=== PATIENT | female | born 1960 | race Caucasian/White ===

== ENCOUNTER 2017-03-31 14:30 | Inpatient (IN) | payer BC ==
[~2017-03-31] VITALS: Ht 162.5 cm; Wt 52.6 kg
[2017-03-31 14:39] VITALS: BP 111/74
[2017-03-31 15:03] LABS: BASO # 0.1 10*3/uL (0.0-0.1); BASO % 0.7 % (0.0-1.0); EOS # 0.1 10*3/uL (0.0-0.4); EOS % 1.5 % (1.0-4.0); HEMATOCRIT 43.2 % (37.0-47.0); HEMOGLOBIN 14.2 g/dl (12.0-16.0); LYMPH # 3.7 10*3/uL (1.3-4.4); LYMPH % 46.5 % (27.0-41.0); MEAN CELL VOLUME 93.7 fl (81.0-99.0); MEAN CORPUSCULAR HGB 30.8 pg (27.0-31.0); MEAN CORPUSCULAR HGB CONC 32.9 g/dl (33.0-37.0); MEAN PLATELET VOLUME 10.3 fl (9.6-12.3); MONO # 0.4 10*3/uL (0.1-1.0); NEUT # 3.7 10*3/uL (2.3-7.9); NEUT % 46.1 % (47.0-73.0); PLATELET COUNT AUTOMATED 288 10*3/uL (130-400); RED BLOOD COUNT 4.61 10*6/uL (4.10-5.10); RED CELL DISTRI WIDTH 13.7 % (0-14.5); WHITE BLOOD COUNT 8.1 10*3/uL (4.8-10.8)
[2017-03-31 15:22] LABS: ALBUMIN 3.7 gm/dl (3.1-4.5); ALKALINE PHOSPHATASE 95 U/L (45-117); BUN 13 mg/dl (7-24); CHLORIDE 111 mmol/L (98-107); CREATININE 0.76 mg/dL (0.55-1.02); POTASSIUM 3.7 mmol/L (3.5-5.1); SGOT/AST 34 IU/L (3-35); SGPT/ALT 30 U/L (12-78); SODIUM 145 mmol/L (136-145); TOTAL PROTEIN 7.4 gm/dL (6.4-8.2)
[2017-03-31 15:24] LABS: ACETAMINOPHEN (TYLENOL) < 2.0 ug/ml (10-30); TROPONIN I < 0.015 ng/ml (<0.045)
[2017-03-31 15:29] LABS: THYROID STIM HORMONE (HS) 0.599 uIU/ml (0.358-4.75)
--- NOTE | 2017-03-31 15:56 | NUR ---
PATIENT WITH BANANA BAG INFUSING AT TIME OF ADMISION. PATIENT REFUSED TO PUT ON HOSPITAL GOWN
[2017-03-31 16:00] VITALS: BP 114/58
--- NOTE | 2017-03-31 16:10 | NUR ---
56 year old FEMALE admitted to room # 416 for stabilization. Reports an addiction to ETOH last used 1400 hours prior to admission. Compliant with admission procedure. Patient denies any anxiety, but is unable to sit still, taps toes to floor continuously, looks about room, unable to focus eyes on nurse during interview. See assessment forms for additional information about patient status.
[2017-03-31] MEDS ORDERED: TOPROL XL50 M1 PO (17:11)
[2017-03-31] MEDS ORDERED: BUSPIRONE15 MG PO (17:11)
[2017-03-31] MEDS ORDERED: NEURONTIN100 MG PO (17:11)
[2017-03-31] MEDS ORDERED: VISTARIL25 M2 PO (17:12)
[2017-03-31] MEDS ORDERED: REMERON15 M2 PO (17:12)
--- NOTE | 2017-03-31 17:16 | NUR ---
CALLED AND NOTIFIED THAT HOME MEDICATIONS WERE VERIFIED WITH [facility] AND WERE UPDATED IN [facility].
[2017-03-31 20:00] VITALS: BP 145/90
[2017-03-31 20:14] LABS: BILIRUBIN NEGATIVE (NEGATIVE); BLOOD NEGATIVE (NEGATIVE); CLARITY SL CLOUDY (CLEAR); COLOR YELLOW (YELLOW); GLUCOSE NEGATIVE (NEGATIVE); KETONE NEGATIVE (NEGATIVE); LEUKO ESTERASE 1+ (NEGATIVE); NITRITE POSITIVE (NEGATIVE); PH 5.5 (5.0-9.0); SPECIFIC GRAVITY 1.015 (1.005-1.030); UROBILINOGEN 0.2 E.U./dl (0.2-1.0)
[2017-03-31 20:24] LABS: RBC 0-2 rbc/hpf (0-2); URINE AMPHETAMINES < 1000 (1000ng/ml); URINE BARBITURATES < 200 (200ng/ml); URINE BENZODIAZEPINES > 200 (200ng/ml); URINE CANNABINOIDS (THC) < 50 (50ng/ml); URINE COCAINE < 300 (300ng/ml); URINE METHADONE < 300 (300ng/ml); URINE OPIATES < 300 (300ng/ml)
[2017-03-31 20:25] LABS: BACTERIA 4+; MUCOUS TRACE
--- NOTE | 2017-03-31 20:30 | NUR ---
PATIENT IV INFILTRATED. 22G ANGIOCATH INSERTED INTO RIGHT WRIST WITHOUT DIFFICULTY. PATIENT TOLERATED PROCEDURE WELL. NO SIGNS OR SYMPTOMS OF DISTRESS NOTED. WILL CONTINUE TO MONITOR. CALL LIGHT IN REACH.
[2017-03-31 20:33] LABS: URINE PHENCYCLIDINE < 25 (25ng/ml)
[2017-04-01] VITALS: BP 122/69
--- NOTE | 2017-04-01 01:21 | NUR ---
PATIENT RESTING IN BED WITH EYES CLOSED. AROUSES TO VERBAL STIMULI. NO SIGNS OR SYMPTOMS OF DISTRESS NOTED. DENIES COMPLAINTS OF PAIN OR DISCOMFORT. WILL CONTINUE TO MONITOR. CALL LIGHT IN REACH.
[2017-04-01 04:00] VITALS: BP 132/78
[2017-04-01 08:00] VITALS: BP 154/91
[2017-04-01 12:00] VITALS: BP 151/91
[2017-04-01 16:00] VITALS: BP 113/65
[2017-04-01 20:00] VITALS: BP 116/71
--- NOTE | 2017-04-01 20:32 | NUR ---
PATIENT RESTING COMFORTABLY IN BED. NO VOICED COMPLAINTS AT THIS TIME. A&0X3, PLEASANT/COOPERATIVE WITH CARE, AMBULATORY W/ STEADY GAIT. RESPIRATIONS EASY/REG. NO SXS OF DISTRESS. CALL LIGHT IN REACH. WILL MONITOR.
[2017-04-02 01:17] VITALS: BP 111/59
--- NOTE | 2017-04-02 04:16 | NUR ---
SLEEPING, NO SXS OF DISTRESS. RESPIRATIONS EASY/REG. CALL LIGHT IN REACH.
[2017-04-02 08:00] VITALS: BP 136/91
--- NOTE | 2017-04-02 08:00 | NUR ---
PT RESTING IN BED. PT ANXIOUS. PACING THE ROOM/ WANTS TO GO HOME. STATES SHE WILL WAIT FOR
[2017-04-02 12:00] VITALS: BP 128/78
--- NOTE | 2017-04-02 14:00 | NUR ---
PT LEFT AMA. DR WILLAMS AND TOPOGRAPHICAL SURVEYOR BINDU NOTIFIED
--- NOTE | 2017-04-02 14:29 | NUR ---
LEFT DETAILED MESSAGE AT [facility] OFFICE REGARDING PT LEAVING AMA
== END 2017-04-02 14:32 | disposition left against medical advice (07) | DRG 894 ==
LOC: ED 14:30 → EDHOLD 15:09 → 5E 15:15
PROVIDERS: Nurse Practitioner Family; ADMIT Internal Medicine
DX: F10.230 Alcohol dependence with withdrawal, uncomplicated (principal); E87.8 Other disorders of electrolyte and fluid balance, not elsewhere classified; D70.9 Neutropenia, unspecified; F10.29 Alcohol dependence with unspecified alcohol-induced disorder; N39.0 Urinary tract infection, site not specified; R73.9 Hyperglycemia, unspecified; D72.820 Lymphocytosis (symptomatic); Z71.6 Tobacco abuse counseling; Z72.0 Tobacco use; I10 Essential (primary) hypertension; F41.9 Anxiety disorder, unspecified; G47.00 Insomnia, unspecified; M79.2 Neuralgia and neuritis, unspecified; Z53.21 Procedure and treatment not carried out due to patient leaving prior to being seen by health care provider; Z90.89 Acquired absence of other organs; Z82.49 Family history of ischemic heart disease and other diseases of the circulatory system; Z79.899 Other long term (current) drug therapy

== ENCOUNTER 2017-04-06 12:29 | Emergency (ER) | payer BC ==
[~2017-04-06] VITALS: Ht 160 cm; Wt 54.4 kg
[~2017-04-06 12:29] MED LIST: BUSPIRONE15 MG PO; NEURONTIN100 MG PO; REMERON15 M2 PO; TOPROL XL50 M1 PO; VISTARIL25 M2 PO
[2017-04-06] MEDS ORDERED: CIPROFLOXACIN500 M4 PO (15:47)
== END 2017-04-06 14:13 | disposition left against medical advice (07) ==
LOC: ED 12:29
DX: F10.920 Alcohol use, unspecified with intoxication, uncomplicated (principal); F17.210 Nicotine dependence, cigarettes, uncomplicated; F41.9 Anxiety disorder, unspecified; I10 Essential (primary) hypertension

== ENCOUNTER 2017-04-06 14:12 | Inpatient (IN) | payer BC ==
[~2017-04-06] VITALS: Ht 160 cm; Wt 56.8 kg
[2017-04-06 14:19] VITALS: BP 142/76
--- NOTE | 2017-04-06 14:24 | NUR ---
SPOKE WITH JOSE GONZALEZ [facility] AND SHE STATES THE PATIENT CAN BE ADMITTED TO THE [facility]. MADE AWARE. RANJITH BLACKMAN RN.
[2017-04-06 14:36] LABS: BASO # 0.1 10*3/uL (0.0-0.1); BASO % 0.9 % (0.0-1.0); EOS # 0.3 10*3/uL (0.0-0.4); EOS % 4.3 % (1.0-4.0); LYMPH # 3.1 10*3/uL (1.3-4.4); LYMPH % 44.7 % (27.0-41.0); MEAN CELL VOLUME 93.5 fl (81.0-99.0); MEAN CORPUSCULAR HGB 31.2 pg (27.0-31.0); MEAN CORPUSCULAR HGB CONC 33.3 g/dl (33.0-37.0); MONO # 0.6 10*3/uL (0.1-1.0); MONO % 9.1 % (3.0-9.0); NEUT # 2.8 10*3/uL (2.3-7.9); NEUT % 40.9 % (47.0-73.0); PLATELET COUNT AUTOMATED 297 10*3/uL (130-400); RED BLOOD COUNT 4.49 10*6/uL (4.10-5.10); RED CELL DISTRI WIDTH 13.4 % (0-14.5)
--- NOTE | 2017-04-06 14:43 | NUR ---
PATIENT IS TEARFUL IN HER ROOM AT THIS TIME, PATIENT STATES THAT SHE DOES NOT WANT TO BE MONITORED VERY UPSET, RESIDENT WAS IN THE ROOM TALKING TO THE PATIENT AND THE PATIENT BECAME VERY UPSET, THE RESIDENT CONTACTED [facility] AND THEY ARE COMING DOWN TO TALK TO THE PATIENT. ANAI,RN
[2017-04-06 14:47] LABS: ALBUMIN 3.7 gm/dl (3.1-4.5); ALKALINE PHOSPHATASE 89 U/L (45-117); BUN 14 mg/dl (7-24); CHLORIDE 110 mmol/L (98-107); CREATININE 0.85 mg/dL (0.55-1.02); MAGNESIUM 2.4 mg/dL (1.5-2.1); POTASSIUM 4.2 mmol/L (3.5-5.1); SGOT/AST 19 IU/L (3-35); SGPT/ALT 28 U/L (12-78); SODIUM 145 mmol/L (136-145); TOTAL PROTEIN 7.5 gm/dL (6.4-8.2)
[2017-04-06 14:51] LABS: ACT PARTIAL THROMBO TIME 25.5 SECONDS (20.8-31.5); INTERNATIONAL NORM RATIO 0.9 (2.0-3.5)
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
--- NOTE | 2017-04-06 15:35 | NUR ---
56 year old FEMALE admitted to room # 406 for stabilization. Reports an addiction to ALCOHOL last used 3 hours prior to admission. Compliant with admission procedure. Patient denies any anxiety, but is unable to sit still, taps toes to floor continuously, looks about room, unable to focus eyes on nurse during interview. See assessment forms for additional information about patient status.
[2017-04-06] MEDS ORDERED: CIPROFLOXACIN500 M4 PO (15:47)
[2017-04-06 16:00] VITALS: BP 140/92
[2017-04-06 20:00] VITALS: BP 112/60
--- NOTE | 2017-04-06 23:17 | NUR ---
PATIENT RESTING IN BED, NO S/S OF DISTRESS. NO TREMORS NOTED. IV INTACT. NO EDEMA NOTED.
[2017-04-07] VITALS: BP 114/77
--- NOTE | 2017-04-07 02:18 | NUR ---
24 HR chart check completed.
[2017-04-07 04:10] LABS: BILIRUBIN NEGATIVE (NEGATIVE); BLOOD NEGATIVE (NEGATIVE); CLARITY CLEAR (CLEAR); COLOR YELLOW (YELLOW); GLUCOSE NEGATIVE (NEGATIVE); KETONE NEGATIVE (NEGATIVE); LEUKO ESTERASE NEGATIVE (NEGATIVE); NITRITE NEGATIVE (NEGATIVE); PH 5.5 (5.0-9.0); SPECIFIC GRAVITY 1.015 (1.005-1.030); UROBILINOGEN 0.2 E.U./dl (0.2-1.0)
[2017-04-07 04:19] LABS: BACTERIA 3+
[2017-04-07 04:20] LABS: URINE AMPHETAMINES < 1000 (1000ng/ml); URINE BARBITURATES < 200 (200ng/ml); URINE BENZODIAZEPINES > 200 (200ng/ml); URINE CANNABINOIDS (THC) < 50 (50ng/ml); URINE COCAINE < 300 (300ng/ml); URINE METHADONE < 300 (300ng/ml); URINE OPIATES < 300 (300ng/ml)
[2017-04-07 04:27] LABS: URINE PHENCYCLIDINE < 25 (25ng/ml)
[2017-04-07 06:45] LABS: BASO % 0.6 % (0.0-1.0); EOS # 0.3 10*3/uL (0.0-0.4); EOS % 4.2 % (1.0-4.0); HEMATOCRIT 38.2 % (37.0-47.0); HEMOGLOBIN 12.5 g/dl (12.0-16.0); LYMPH % 43.2 % (27.0-41.0); MEAN CELL VOLUME 93.9 fl (81.0-99.0); MEAN CORPUSCULAR HGB 30.7 pg (27.0-31.0); MEAN CORPUSCULAR HGB CONC 32.7 g/dl (33.0-37.0); MEAN PLATELET VOLUME 10.6 fl (9.6-12.3); MONO # 0.7 10*3/uL (0.1-1.0); MONO % 9.3 % (3.0-9.0); NEUT % 42.6 % (47.0-73.0); PLATELET COUNT AUTOMATED 251 10*3/uL (130-400); RED BLOOD COUNT 4.07 10*6/uL (4.10-5.10); RED CELL DISTRI WIDTH 13.5 % (0-14.5)
[2017-04-07 07:12] LABS: ALBUMIN 3.3 gm/dl (3.1-4.5); ALKALINE PHOSPHATASE 81 U/L (45-117); BUN 21 mg/dl (7-24); CHLORIDE 107 mmol/L (98-107); CREATININE 0.82 mg/dL (0.55-1.02); POTASSIUM 3.6 mmol/L (3.5-5.1); SGOT/AST 19 IU/L (3-35); SGPT/ALT 26 U/L (12-78); SODIUM 142 mmol/L (136-145); TOTAL PROTEIN 5.9 gm/dL (6.4-8.2)
[2017-04-07 08:00] VITALS: BP 138/88
--- NOTE | 2017-04-07 09:33 | NUR ---
PATIENT COMPLAINING OF AGITATION AT THIS TIME AND REQUESTING ATIVAN. GIVEN PER ORDER. WILL MONITOR FOR EFEFCTIVENESS.
--- NOTE | 2017-04-07 09:50 | NUR ---
PER PT ATIVAN HAS BEEN EFFECTIVE.
--- NOTE | 2017-04-07 10:00 | NUR ---
patient medicated with Sennokot at this time upon request. will monitor.
[2017-04-07 12:00] VITALS: BP 132/76
--- NOTE | 2017-04-07 13:02 | NUR ---
PATIENT WILL FOLLW-UP WITH AA MEETINGS ALONG WITH COUNSELING THROUGH [facility] AT [facility]. PATIENT AGREES AND UNDERSTANDS HER AFTERCARFE PLAN. JOSE MICHEL B.A. MARINA PORTER.
[2017-04-07 16:00] VITALS: BP 134/70
[2017-04-07 20:00] VITALS: BP 99/59
[2017-04-08] VITALS: BP 108/71
[2017-04-08 08:00] VITALS: BP 119/73
--- NOTE | 2017-04-08 09:28 | NUR ---
PRN ATIVAN GIVEN FOR PT REPORT OF ANXIETY. PATIENT ADMITS SHE IS CONTEMPLATING LEAVING AMA. OCEANOGRAPHER PHYSICAL YOAV WARREN NOTIFIED.
--- NOTE | 2017-04-08 10:28 | NUR ---
PRN ATIVAN MINIMALLY EFFECTIVE. NO FURTHER FOLLOW UP NEEDED, PT HAS BEEN DISCHARGED.
--- NOTE | 2017-04-08 12:00 | NUR ---
Discharge instructions reviewed with patient/family. Patient receptive and verbalizes understanding. Follow-up care arranged. Written instructions given to patient/family. MEDINA SOUSA
== END 2017-04-08 12:00 | disposition home or self-care (01) | DRG 897 ==
LOC: ED 14:12 → EDHOLD 14:20 → 4E 14:41
PROVIDERS: Emergency Medicine; Internal Medicine; ADMIT Internal Medicine
DX: F10.230 Alcohol dependence with withdrawal, uncomplicated (principal); E87.8 Other disorders of electrolyte and fluid balance, not elsewhere classified; E83.41 Hypermagnesemia; E83.51 Hypocalcemia; I10 Essential (primary) hypertension; F41.9 Anxiety disorder, unspecified; F32.9 Major depressive disorder, single episode, unspecified; F17.210 Nicotine dependence, cigarettes, uncomplicated; Z79.899 Other long term (current) drug therapy; Z90.710 Acquired absence of both cervix and uterus; Z82.49 Family history of ischemic heart disease and other diseases of the circulatory system

== ENCOUNTER 2017-04-10 02:51 | Emergency (ER) | payer BC ==
[~2017-04-10] VITALS: Ht 160 cm; Wt 54.4 kg
[~2017-04-10 02:51] MED LIST changes: +CIPROFLOXACIN500 M4 PO
[2017-04-10 04:31] LABS: BASO # 0.1 10*3/uL (0.0-0.1); BASO % 0.6 % (0.0-1.0); EOS # 0.4 10*3/uL (0.0-0.4); EOS % 4.4 % (1.0-4.0); HEMATOCRIT 39.6 % (37.0-47.0); HEMOGLOBIN 13.1 g/dl (12.0-16.0); LYMPH % 45.5 % (27.0-41.0); MEAN CELL VOLUME 94.5 fl (81.0-99.0); MEAN CORPUSCULAR HGB 31.3 pg (27.0-31.0); MEAN CORPUSCULAR HGB CONC 33.1 g/dl (33.0-37.0); MEAN PLATELET VOLUME 10.3 fl (9.6-12.3); MONO # 0.7 10*3/uL (0.1-1.0); MONO % 7.4 % (3.0-9.0); NEUT # 3.7 10*3/uL (2.3-7.9); NEUT % 41.9 % (47.0-73.0); PLATELET COUNT AUTOMATED 266 10*3/uL (130-400); RED BLOOD COUNT 4.19 10*6/uL (4.10-5.10); RED CELL DISTRI WIDTH 13.5 % (0-14.5); WHITE BLOOD COUNT 8.7 10*3/uL (4.8-10.8)
[2017-04-10 04:44] LABS: BUN 20 mg/dl (7-24); CHLORIDE 114 mmol/L (98-107); CREATININE 0.79 mg/dL (0.55-1.02); POTASSIUM 3.9 mmol/L (3.5-5.1); SODIUM 147 mmol/L (136-145)
[2017-04-10 04:53] LABS: ACETAMINOPHEN (TYLENOL) < 2.0 ug/ml (10-30)
[2017-04-10 10:05] LABS: BILIRUBIN NEGATIVE (NEGATIVE); BLOOD NEGATIVE (NEGATIVE); CLARITY CLEAR (CLEAR); COLOR YELLOW (YELLOW); GLUCOSE NEGATIVE (NEGATIVE); KETONE NEGATIVE (NEGATIVE); LEUKO ESTERASE NEGATIVE (NEGATIVE); NITRITE NEGATIVE (NEGATIVE); PH 5.5 (5.0-9.0); UROBILINOGEN 0.2 E.U./dl (0.2-1.0)
[2017-04-10 10:13] LABS: URINE AMPHETAMINES < 1000 (1000ng/ml); URINE BARBITURATES < 200 (200ng/ml); URINE BENZODIAZEPINES > 200 (200ng/ml); URINE CANNABINOIDS (THC) < 50 (50ng/ml); URINE COCAINE < 300 (300ng/ml); URINE METHADONE < 300 (300ng/ml); URINE OPIATES < 300 (300ng/ml)
[2017-04-10 10:19] LABS: URINE PHENCYCLIDINE < 25 (25ng/ml)
== END 2017-04-10 17:44 | disposition left against medical advice (07) ==
LOC: ED 02:51
PROVIDERS: Emergency Medicine Emergency Medical Services
DX: F10.129 Alcohol abuse with intoxication, unspecified (principal); Y90.0 Blood alcohol level of less than 20 mg/100 ml; F41.9 Anxiety disorder, unspecified; F32.9 Major depressive disorder, single episode, unspecified; I10 Essential (primary) hypertension; E87.8 Other disorders of electrolyte and fluid balance, not elsewhere classified; G47.00 Insomnia, unspecified; F17.210 Nicotine dependence, cigarettes, uncomplicated; Z90.710 Acquired absence of both cervix and uterus

== ENCOUNTER 2017-05-23 13:37 | Emergency (ER) | payer SELFPAY ==
[~2017-05-23] VITALS: Wt 54.4 kg
[2017-05-23 14:36] LABS: BASO # 0.1 10*3/uL (0.0-0.1); BASO % 0.9 % (0.0-1.0); EOS # 0.1 10*3/uL (0.0-0.4); EOS % 1.3 % (1.0-4.0); HEMOGLOBIN 15.1 g/dl (12.0-16.0); LYMPH # 3.9 10*3/uL (1.3-4.4); LYMPH % 45.5 % (27.0-41.0); MEAN CELL VOLUME 91.3 fl (81.0-99.0); MEAN CORPUSCULAR HGB 31.3 pg (27.0-31.0); MEAN CORPUSCULAR HGB CONC 34.3 g/dl (33.0-37.0); MEAN PLATELET VOLUME 9.9 fl (9.6-12.3); MONO # 0.4 10*3/uL (0.1-1.0); MONO % 4.7 % (3.0-9.0); NEUT % 47.2 % (47.0-73.0); PLATELET COUNT AUTOMATED 311 10*3/uL (130-400); RED BLOOD COUNT 4.82 10*6/uL (4.10-5.10); RED CELL DISTRI WIDTH 13.2 % (0-14.5); WHITE BLOOD COUNT 8.5 10*3/uL (4.8-10.8)
[2017-05-23 14:50] LABS: ALBUMIN 4.3 gm/dl (3.1-4.5); ALKALINE PHOSPHATASE 95 U/L (45-117); BUN 9 mg/dl (7-24); CHLORIDE 112 mmol/L (98-107); CREATININE 0.61 mg/dL (0.55-1.02); POTASSIUM 3.5 mmol/L (3.5-5.1); SGOT/AST 18 IU/L (3-35); SGPT/ALT 26 U/L (12-78); SODIUM 147 mmol/L (136-145); TOTAL PROTEIN 7.7 gm/dL (6.4-8.2)
== END 2017-05-24 09:47 | disposition home or self-care (01) ==
LOC: ED 13:37
PROVIDERS: Emergency Medicine
DX: F10.20 Alcohol dependence, uncomplicated (principal); G89.29 Other chronic pain; F41.9 Anxiety disorder, unspecified; F32.9 Major depressive disorder, single episode, unspecified; I10 Essential (primary) hypertension; E83.41 Hypermagnesemia; E83.51 Hypocalcemia; F17.210 Nicotine dependence, cigarettes, uncomplicated; Z90.89 Acquired absence of other organs

== ENCOUNTER 2017-07-10 14:17 | Inpatient (IN) | payer MEDICAID ==
[~2017-07-10] VITALS: Ht 160 cm; Wt 55.0 kg
[2017-07-10 14:20] VITALS: BP 122/80
[2017-07-10 14:34] VITALS: BP 147/92
[2017-07-10 15:12] LABS: BASO # 0.1 10*3/uL (0.0-0.1); BASO % 0.7 % (0.0-1.0); EOS # 0.3 10*3/uL (0.0-0.4); EOS % 4.5 % (1.0-4.0); HEMATOCRIT 38.6 % (37.0-47.0); LYMPH % 39.9 % (27.0-41.0); MEAN CELL VOLUME 93.2 fl (81.0-99.0); MEAN CORPUSCULAR HGB 31.4 pg (27.0-31.0); MEAN CORPUSCULAR HGB CONC 33.7 g/dl (33.0-37.0); MEAN PLATELET VOLUME 9.6 fl (9.6-12.3); MONO # 0.7 10*3/uL (0.1-1.0); MONO % 8.9 % (3.0-9.0); NEUT # 3.4 10*3/uL (2.3-7.9); NEUT % 45.5 % (47.0-73.0); PLATELET COUNT AUTOMATED 225 10*3/uL (130-400); RED BLOOD COUNT 4.14 10*6/uL (4.10-5.10); RED CELL DISTRI WIDTH 14.6 % (0-14.5); WHITE BLOOD COUNT 7.5 10*3/uL (4.8-10.8)
[2017-07-10 15:21] LABS: ACT PARTIAL THROMBO TIME 24.9 SECONDS (20.8-31.5); INTERNATIONAL NORM RATIO 0.9 (2.0-3.5)
[2017-07-10 15:27] LABS: ALBUMIN 3.6 gm/dl (3.1-4.5); ALKALINE PHOSPHATASE 113 U/L (45-117); BUN 15 mg/dl (7-24); CHLORIDE 109 mmol/L (98-107); CREATININE 0.73 mg/dL (0.55-1.02); POTASSIUM 3.7 mmol/L (3.5-5.1); SGOT/AST 40 IU/L (3-35); SGPT/ALT 53 U/L (12-78); SODIUM 144 mmol/L (136-145); TOTAL PROTEIN 6.9 gm/dL (6.4-8.2)
[2017-07-10 16:35] VITALS: BP 120/87
[2017-07-10 17:00] VITALS: BP 123/84
[2017-07-10 20:00] VITALS: BP 129/68
[2017-07-11] VITALS: BP 162/64
[2017-07-11 08:00] VITALS: BP 146/78
[2017-07-11 12:00] VITALS: BP 146/86
[2017-07-11 16:00] VITALS: BP 126/70
[2017-07-11 20:00] VITALS: BP 146/97
[2017-07-11 20:58] LABS: BILIRUBIN NEGATIVE (NEGATIVE); BLOOD NEGATIVE (NEGATIVE); CLARITY SL CLOUDY (CLEAR); COLOR YELLOW (YELLOW); GLUCOSE NEGATIVE (NEGATIVE); KETONE NEGATIVE (NEGATIVE); LEUKO ESTERASE NEGATIVE (NEGATIVE); NITRITE NEGATIVE (NEGATIVE); PH 6.5 (5.0-9.0); UROBILINOGEN 0.2 E.U./dl (0.2-1.0)
[2017-07-11 21:04] LABS: BACTERIA 2+; RBC 0-2 rbc/hpf (0-2)
[2017-07-11 21:07] LABS: URINE AMPHETAMINES < 1000 (1000ng/ml); URINE BARBITURATES > 200 (200ng/ml); URINE BENZODIAZEPINES > 200 (200ng/ml); URINE CANNABINOIDS (THC) < 50 (50ng/ml); URINE COCAINE < 300 (300ng/ml); URINE METHADONE < 300 (300ng/ml); URINE OPIATES < 300 (300ng/ml); URINE PHENCYCLIDINE < 25 (25ng/ml)
[2017-07-12] VITALS: BP 113/63
[2017-07-12 08:00] VITALS: BP 138/80
[2017-07-12] MEDS ORDERED: NEURONTIN100 MG PO (11:38)
[2017-07-12] MEDS ORDERED: TOPROL XL50 M1 PO (11:38)
[2017-07-12] MEDS ORDERED: BUSPIRONE15 MG PO (11:38)
[2017-07-12] MEDS ORDERED: VISTARIL25 M2 PO (11:38)
[2017-07-12 12:00] VITALS: BP 138/82
== END 2017-07-12 13:01 | disposition home or self-care (01) | DRG 897 ==
LOC: EDSTATUS 14:17 → ED 14:17 → EDHOLD 15:38 → 5E 15:38
PROVIDERS: Emergency Medicine
DX: F10.239 Alcohol dependence with withdrawal, unspecified (principal); F10.229 Alcohol dependence with intoxication, unspecified; E87.8 Other disorders of electrolyte and fluid balance, not elsewhere classified; E83.41 Hypermagnesemia; G62.9 Polyneuropathy, unspecified; F41.9 Anxiety disorder, unspecified; G25.1 Drug-induced tremor; R74.0 Nonspecific elevation of levels of transaminase and lactic acid dehydrogenase [LDH]; F17.200 Nicotine dependence, unspecified, uncomplicated; G47.00 Insomnia, unspecified; I10 Essential (primary) hypertension; F32.9 Major depressive disorder, single episode, unspecified; F13.10 Sedative, hypnotic or anxiolytic abuse, uncomplicated; R07.9 Chest pain, unspecified; Z71.6 Tobacco abuse counseling; Z79.899 Other long term (current) drug therapy; Z90.710 Acquired absence of both cervix and uterus; Z82.49 Family history of ischemic heart disease and other diseases of the circulatory system

== ENCOUNTER 2017-07-28 16:45 | Inpatient (IN) | payer OTHER ==
[~2017-07-28] VITALS: Ht 168 cm; Wt 48.1 kg
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
[2017-07-28 16:54] VITALS: BP 122/60
[2017-07-28 18:10] VITALS: BP 142/86
[2017-07-28 18:17] VITALS: BP 118/60
[2017-07-28 18:19] LABS: BASO % 0.6 % (0.0-1.0); EOS # 0.2 10*3/uL (0.0-0.4); EOS % 3.6 % (1.0-4.0); HEMATOCRIT 37.8 % (37.0-47.0); HEMOGLOBIN 12.8 g/dl (12.0-16.0); LYMPH # 2.8 10*3/uL (1.3-4.4); LYMPH % 43.5 % (27.0-41.0); MEAN CELL VOLUME 93.8 fl (81.0-99.0); MEAN CORPUSCULAR HGB 31.8 pg (27.0-31.0); MEAN CORPUSCULAR HGB CONC 33.9 g/dl (33.0-37.0); MEAN PLATELET VOLUME 9.7 fl (9.6-12.3); MONO # 0.4 10*3/uL (0.1-1.0); MONO % 6.2 % (3.0-9.0); NEUT % 45.8 % (47.0-73.0); PLATELET COUNT AUTOMATED 199 10*3/uL (130-400); RED BLOOD COUNT 4.03 10*6/uL (4.10-5.10); RED CELL DISTRI WIDTH 15.3 % (0-14.5); WHITE BLOOD COUNT 6.5 10*3/uL (4.8-10.8)
[2017-07-28 18:30] LABS: INTERNATIONAL NORM RATIO 0.9 (2.0-3.5)
[2017-07-28 18:34] LABS: ALBUMIN 3.5 gm/dl (3.1-4.5); ALKALINE PHOSPHATASE 106 U/L (45-117); BUN 14 mg/dl (7-24); CHLORIDE 110 mmol/L (98-107); LIPASE 583 U/L (73-393); SGOT/AST 56 IU/L (3-35); SGPT/ALT 70 U/L (12-78); SODIUM 147 mmol/L (136-145); TOTAL PROTEIN 6.7 gm/dL (6.4-8.2)
[2017-07-28] MEDS ORDERED: ATIVAN1 MG PO (18:50)
[2017-07-28] MEDS ORDERED: HYDROXYZINE HCL25 MG PO (18:51)
[2017-07-28 20:00] VITALS: BP 120/81
[2017-07-29] VITALS: BP 141/84
[2017-07-29 04:00] VITALS: BP 144/84
[2017-07-29 08:00] VITALS: BP 155/92
[2017-07-29 12:00] VITALS: BP 152/89
[2017-07-29 16:00] VITALS: BP 146/90
[2017-07-29 20:00] VITALS: BP 154/95
[2017-07-30 04:00] VITALS: BP 123/77
[2017-07-30 08:00] VITALS: BP 127/85
[2017-07-30 12:00] VITALS: BP 121/81
[2017-07-30 16:00] VITALS: BP 125/78
[2017-07-30 20:00] VITALS: BP 143/85
[2017-07-31] VITALS: BP 129/85
[2017-07-31 04:00] VITALS: BP 148/88
[2017-07-31 06:05] LABS: BASO % 0.5 % (0.0-1.0); BUN 15 mg/dl (7-24); CHLORIDE 104 mmol/L (98-107); CREATININE 0.73 mg/dL (0.55-1.02); EOS # 0.3 10*3/uL (0.0-0.4); EOS % 7.2 % (1.0-4.0); HEMATOCRIT 37.9 % (37.0-47.0); HEMOGLOBIN 12.7 g/dl (12.0-16.0); LYMPH # 1.3 10*3/uL (1.3-4.4); MEAN CORPUSCULAR HGB 31.8 pg (27.0-31.0); MEAN CORPUSCULAR HGB CONC 33.5 g/dl (33.0-37.0); MEAN PLATELET VOLUME 10.4 fl (9.6-12.3); MONO # 0.6 10*3/uL (0.1-1.0); MONO % 13.4 % (3.0-9.0); NEUT % 46.9 % (47.0-73.0); PHOSPHOROUS 3.7 mg/dL (2.5-4.9); PLATELET COUNT AUTOMATED 138 10*3/uL (130-400); POTASSIUM 3.3 mmol/L (3.5-5.1); RED BLOOD COUNT 3.99 10*6/uL (4.10-5.10); RED CELL DISTRI WIDTH 15.1 % (0-14.5); SODIUM 143 mmol/L (136-145); WHITE BLOOD COUNT 4.2 10*3/uL (4.8-10.8)
[2017-07-31 08:00] VITALS: BP 151/81
[2017-07-31 12:00] VITALS: BP 127/83
[2017-07-31 16:00] VITALS: BP 118/75
[2017-07-31 20:00] VITALS: BP 148/85
[2017-08-01] VITALS: BP 131/83
[2017-08-01 04:00] VITALS: BP 131/82
[2017-08-01 06:01] LABS: ALBUMIN 3.1 gm/dl (3.1-4.5); ALKALINE PHOSPHATASE 101 U/L (45-117); BUN 20 mg/dl (7-24); CHLORIDE 110 mmol/L (98-107); CREATININE 0.77 mg/dL (0.55-1.02); POTASSIUM 3.3 mmol/L (3.5-5.1); SGOT/AST 63 IU/L (3-35); SGPT/ALT 126 U/L (12-78); SODIUM 143 mmol/L (136-145); TOTAL PROTEIN 6.1 gm/dL (6.4-8.2)
[2017-08-01 06:02] LABS: BASO % 0.8 % (0.0-1.0); EOS # 0.3 10*3/uL (0.0-0.4); EOS % 6.3 % (1.0-4.0); HEMATOCRIT 37.8 % (37.0-47.0); HEMOGLOBIN 12.5 g/dl (12.0-16.0); LYMPH # 2.1 10*3/uL (1.3-4.4); LYMPH % 39.9 % (27.0-41.0); MEAN CELL VOLUME 95.9 fl (81.0-99.0); MEAN CORPUSCULAR HGB 31.7 pg (27.0-31.0); MEAN CORPUSCULAR HGB CONC 33.1 g/dl (33.0-37.0); MONO # 0.7 10*3/uL (0.1-1.0); MONO % 13.6 % (3.0-9.0); NEUT % 39.2 % (47.0-73.0); PLATELET COUNT AUTOMATED 144 10*3/uL (130-400); RED BLOOD COUNT 3.94 10*6/uL (4.10-5.10); RED CELL DISTRI WIDTH 15.3 % (0-14.5); WHITE BLOOD COUNT 5.2 10*3/uL (4.8-10.8)
[2017-08-01 08:00] VITALS: BP 133/87
== END 2017-08-01 10:36 | disposition home or self-care (01) | DRG 896 ==
LOC: ED 16:45 → ICCU 17:30 → EDHOLD 17:30 → ICCU 17:31
PROVIDERS: Emergency Medicine; Internal Medicine; Student in an Organized Health Care Education/Training Program
DX: F10.229 Alcohol dependence with intoxication, unspecified (principal); G93.41 Metabolic encephalopathy; E44.0 Moderate protein-calorie malnutrition; E87.0 Hyperosmolality and hypernatremia; E87.8 Other disorders of electrolyte and fluid balance, not elsewhere classified; Z68.1 Body mass index [BMI] 19.9 or less, adult; F33.9 Major depressive disorder, recurrent, unspecified; E83.41 Hypermagnesemia; G47.00 Insomnia, unspecified; E87.6 Hypokalemia; G25.1 Drug-induced tremor; F41.1 Generalized anxiety disorder; F13.10 Sedative, hypnotic or anxiolytic abuse, uncomplicated; Y90.8 Blood alcohol level of 240 mg/100 ml or more; M79.2 Neuralgia and neuritis, unspecified; F10.239 Alcohol dependence with withdrawal, unspecified; R74.0 Nonspecific elevation of levels of transaminase and lactic acid dehydrogenase [LDH]; R74.8 Abnormal levels of other serum enzymes; F17.210 Nicotine dependence, cigarettes, uncomplicated; I10 Essential (primary) hypertension; T50.905A Adverse effect of unspecified drugs, medicaments and biological substances, initial encounter; Y92.89 Other specified places as the place of occurrence of the external cause; Z90.710 Acquired absence of both cervix and uterus; Z71.6 Tobacco abuse counseling; Z90.49 Acquired absence of other specified parts of digestive tract; Z82.49 Family history of ischemic heart disease and other diseases of the circulatory system; Z79.899 Other long term (current) drug therapy

== ENCOUNTER 2017-09-26 13:59 | Inpatient (IN) | payer OTHER ==
[~2017-09-26] VITALS: Ht 160 cm; Wt 52.7 kg
--- NOTE | ~2017-09-26 | CON ---
[place], [place] REPORT OF CONSULTATION NAME: [id number] UNIT #: [id number] ROOM: 412 DOCTOR: WILMER ONOFRE ED.D) BIRTHDATE: [birth year] DOS: 09/27/2017 HISTORY OF PRESENT ILLNESS: The patient is a 57-year-old female referred for depression by the hospitalist. At the present time, she is on the 4th floor at [facility] and is a [facility] patient for treatment of her alcohol dependency. She is and has 4 children. She does not work at this time. She will be following with a physician in [place], [place]. She states her alcohol consumption includes one fifth of vodka and also chardonnay. She also smokes 1/2 pack of cigarettes per day. She uses no recreational drugs. This patient was awake, alert and oriented in all three spheres. She states she only gets depressed when she drinks and at the present time she is not depressed. She has a long history of alcoholism and treatment. She has been to inpatient rehabilitation 4-5 times including the [facility] and [facility]. She is going to follow up at the [facility] in [place], [place] when she is discharged from the hospital. She denies any suicidal ideation or plan and states that she is not going to harm herself and does not really believe that she will need any outpatient therapy either for treatment of her alcoholism. At the present time, she is taking Toprol, gabapentin, Vistaril, Ativan, Remeron and BuSpar. Her medical history includes alcoholism, hypertension, barbiturate abuse, depression and hypertension. Her short and long-term memory appears to be intact and her insight and judgment are fair. In my opinion, this patient will benefit from intensive outpatient treatment at the [facility] in [place], [place]. She states she does not feel she has issues with regard to her depression, other than when she drinks DIAGNOSES: 1. Alcohol dependence. 2. Major depressive disorder, recurrent. RECOMMENDATIONS: The patient should continue with intensive outpatient treatment. Thank you very much for this consult. WILMER ONOFRE ED.D CM:CONSTR:REPORT OF CONSULTATION 1247 09/27/17 1339 interface
[~2017-09-26 13:59] MED LIST changes: +ATIVAN1 MG PO; +HYDROXYZINE HCL25 MG PO
[2017-09-26 14:10] VITALS: BP 126/81
[2017-09-26 15:17] LABS: BASO # 0.1 10*3/uL (0.0-0.1); BASO % 0.7 % (0.0-1.0); EOS # 0.1 10*3/uL (0.0-0.4); EOS % 1.6 % (1.0-4.0); HEMATOCRIT 43.7 % (37.0-47.0); HEMOGLOBIN 14.2 g/dl (12.0-16.0); LYMPH # 3.5 10*3/uL (1.3-4.4); LYMPH % 42.6 % (27.0-41.0); MEAN CELL VOLUME 98.6 fl (81.0-99.0); MEAN CORPUSCULAR HGB 32.1 pg (27.0-31.0); MEAN CORPUSCULAR HGB CONC 32.5 g/dl (33.0-37.0); MEAN PLATELET VOLUME 9.7 fl (9.6-12.3); MONO # 0.8 10*3/uL (0.1-1.0); MONO % 9.3 % (3.0-9.0); NEUT # 3.7 10*3/uL (2.3-7.9); NEUT % 45.6 % (47.0-73.0); PLATELET COUNT AUTOMATED 289 10*3/uL (130-400); RED BLOOD COUNT 4.43 10*6/uL (4.10-5.10); RED CELL DISTRI WIDTH 14.6 % (0-14.5); WHITE BLOOD COUNT 8.2 10*3/uL (4.8-10.8)
[2017-09-26 15:32] LABS: ALBUMIN 3.9 gm/dl (3.1-4.5); ALKALINE PHOSPHATASE 137 U/L (45-117); BUN 17 mg/dl (7-24); CHLORIDE 110 mmol/L (98-107); CREATININE 1.15 mg/dL (0.55-1.02); SGOT/AST 47 IU/L (3-35); SGPT/ALT 53 U/L (12-78); SODIUM 146 mmol/L (136-145); TOTAL PROTEIN 7.3 gm/dL (6.4-8.2)
[2017-09-26 15:37] LABS: ACETAMINOPHEN (TYLENOL) < 2.0 ug/ml (10-30)
[2017-09-26] MEDS ORDERED: REMERON15 M2 PO (17:14)
[2017-09-26 17:36] VITALS: BP 143/90
[2017-09-26] MEDS ORDERED: NEURONTIN100 MG PO (17:44)
[2017-09-26 20:00] VITALS: BP 146/91
[2017-09-27] VITALS: BP 153/97
[2017-09-27 08:00] VITALS: BP 164/98
[2017-09-27 12:00] VITALS: BP 174/90
[2017-09-27 16:00] VITALS: BP 168/90
[2017-09-27 20:00] VITALS: BP 148/88
[2017-09-28] VITALS: BP 147/85
[2017-09-28 08:00] VITALS: BP 158/100
[2017-09-28 08:24] LABS: BILIRUBIN NEGATIVE (NEGATIVE); BLOOD NEGATIVE (NEGATIVE); CLARITY CLOUDY (CLEAR); COLOR YELLOW (YELLOW); GLUCOSE NEGATIVE (NEGATIVE); KETONE NEGATIVE (NEGATIVE); LEUKO ESTERASE NEGATIVE (NEGATIVE); NITRITE NEGATIVE (NEGATIVE); UROBILINOGEN 0.2 E.U./dl (0.2-1.0)
[2017-09-28 08:43] LABS: URINE AMPHETAMINES < 1000 (1000ng/ml); URINE BARBITURATES > 200 (200ng/ml); URINE BENZODIAZEPINES > 200 (200ng/ml); URINE CANNABINOIDS (THC) < 50 (50ng/ml); URINE COCAINE < 300 (300ng/ml); URINE METHADONE < 300 (300ng/ml); URINE OPIATES < 300 (300ng/ml)
[2017-09-28 08:44] LABS: URINE PHENCYCLIDINE < 25 (25ng/ml)
[2017-09-28 09:17] LABS: BACTERIA 1+
== END 2017-09-28 12:00 | disposition left against medical advice (07) | DRG 683 ==
LOC: ED 13:59 → EDHOLD 16:43 → 4E 16:43
PROVIDERS: Nurse Practitioner
DX: N17.0 Acute kidney failure with tubular necrosis (principal); F10.239 Alcohol dependence with withdrawal, unspecified; E87.0 Hyperosmolality and hypernatremia; E83.51 Hypocalcemia; E87.8 Other disorders of electrolyte and fluid balance, not elsewhere classified; F33.9 Major depressive disorder, recurrent, unspecified; R74.0 Nonspecific elevation of levels of transaminase and lactic acid dehydrogenase [LDH]; I10 Essential (primary) hypertension; F41.9 Anxiety disorder, unspecified; Z53.21 Procedure and treatment not carried out due to patient leaving prior to being seen by health care provider; F10.229 Alcohol dependence with intoxication, unspecified; F17.210 Nicotine dependence, cigarettes, uncomplicated; R73.9 Hyperglycemia, unspecified; Y90.8 Blood alcohol level of 240 mg/100 ml or more; G62.9 Polyneuropathy, unspecified; G47.00 Insomnia, unspecified; Z71.6 Tobacco abuse counseling; Z90.710 Acquired absence of both cervix and uterus; Z82.49 Family history of ischemic heart disease and other diseases of the circulatory system; Z79.899 Other long term (current) drug therapy

== ENCOUNTER 2017-10-19 23:15 | Emergency (ER) | payer OTHER ==
[~2017-10-19] VITALS: Ht 162.5 cm; Wt 54.4 kg
[2017-10-20 01:32] LABS: BASO # 0.1 10*3/uL (0.0-0.1); BASO % 1.1 % (0.0-1.0); EOS # 0.2 10*3/uL (0.0-0.4); EOS % 2.7 % (1.0-4.0); HEMATOCRIT 42.5 % (37.0-47.0); HEMOGLOBIN 14.4 g/dl (12.0-16.0); LYMPH # 2.9 10*3/uL (1.3-4.4); LYMPH % 46.3 % (27.0-41.0); MEAN CELL VOLUME 94.9 fl (81.0-99.0); MEAN CORPUSCULAR HGB 32.1 pg (27.0-31.0); MEAN CORPUSCULAR HGB CONC 33.9 g/dl (33.0-37.0); MEAN PLATELET VOLUME 9.7 fl (9.6-12.3); MONO # 0.4 10*3/uL (0.1-1.0); NEUT # 2.7 10*3/uL (2.3-7.9); NEUT % 42.7 % (47.0-73.0); PLATELET COUNT AUTOMATED 186 10*3/uL (130-400); RED BLOOD COUNT 4.48 10*6/uL (4.10-5.10); RED CELL DISTRI WIDTH 13.2 % (0-14.5); WHITE BLOOD COUNT 6.3 10*3/uL (4.8-10.8)
[2017-10-20 01:45] LABS: BUN 10 mg/dl (7-24); CHLORIDE 105 mmol/L (98-107); CREATININE 0.73 mg/dL (0.55-1.02); POTASSIUM 2.6 mmol/L (3.5-5.1); SODIUM 144 mmol/L (136-145)
[2017-10-20 01:50] LABS: ACETAMINOPHEN (TYLENOL) < 2.0 ug/ml (10-30)
[2017-10-20 10:21] LABS: BILIRUBIN NEGATIVE (NEGATIVE); BLOOD 1+ (NEGATIVE); CLARITY SL CLOUDY (CLEAR); COLOR YELLOW (YELLOW); GLUCOSE NEGATIVE (NEGATIVE); KETONE NEGATIVE (NEGATIVE); LEUKO ESTERASE NEGATIVE (NEGATIVE); NITRITE NEGATIVE (NEGATIVE); PH 6.5 (5.0-9.0); UROBILINOGEN 0.2 E.U./dl (0.2-1.0)
[2017-10-20 10:36] LABS: BACTERIA 2+
[2017-10-20 10:37] LABS: URINE AMPHETAMINES < 1000 (1000ng/ml); URINE BARBITURATES < 200 (200ng/ml); URINE BENZODIAZEPINES > 200 (200ng/ml); URINE CANNABINOIDS (THC) < 50 (50ng/ml); URINE COCAINE < 300 (300ng/ml); URINE METHADONE < 300 (300ng/ml); URINE OPIATES < 300 (300ng/ml); URINE PHENCYCLIDINE < 25 (25ng/ml)
[2017-10-20 14:05] LABS: ALBUMIN 3.7 gm/dl (3.1-4.5); ALKALINE PHOSPHATASE 121 U/L (45-117); BILIRUBIN, DIRECT 0.2 mg/dL (0.0-0.2); ETHYL ALCOHOL < 3.0 mg/dl (<3); POTASSIUM 2.9 mmol/L (3.5-5.1); SGOT/AST 58 IU/L (3-35); SGPT/ALT 55 U/L (12-78); TOTAL PROTEIN 7.4 gm/dL (6.4-8.2)
== END 2017-10-20 15:10 | disposition home or self-care (01) ==
LOC: ED 23:15
PROVIDERS: Emergency Medicine
DX: F10.229 Alcohol dependence with intoxication, unspecified (principal); F17.200 Nicotine dependence, unspecified, uncomplicated; E87.6 Hypokalemia; I10 Essential (primary) hypertension; E78.00 Pure hypercholesterolemia, unspecified; Z90.710 Acquired absence of both cervix and uterus; Z90.89 Acquired absence of other organs; Z79.899 Other long term (current) drug therapy; Y90.9 Presence of alcohol in blood, level not specified

== ENCOUNTER 2018-12-15 14:17 | Inpatient (IN) | payer OTHER ==
[2018-12-15] VITALS (7 sets, daily range): BP systolic 118–180; BP diastolic 72–102
[~2018-12-15] VITALS: Ht 160 cm; Wt 56.0 kg
[~2018-12-15 14:17] MED LIST changes: +MOBIC7.5 MG PO; +TOPROL XL100 MG PO
[2018-12-15 15:07] LABS: BASO % 0.6 % (0.0-1.0); EOS # 0.2 10*3/uL (0.0-0.4); HEMATOCRIT 37.5 % (37.0-47.0); HEMOGLOBIN 12.3 g/dl (12.0-16.0); LYMPH # 2.1 10*3/uL (1.3-4.4); LYMPH % 40.9 % (27.0-41.0); MEAN CELL VOLUME 98.2 fl (81.0-99.0); MEAN CORPUSCULAR HGB 32.2 pg (27.0-31.0); MEAN CORPUSCULAR HGB CONC 32.8 g/dl (33.0-37.0); MEAN PLATELET VOLUME 9.3 fl (9.6-12.3); MONO # 0.6 10*3/uL (0.1-1.0); MONO % 12.8 % (3.0-9.0); NEUT # 2.1 10*3/uL (2.3-7.9); NEUT % 41.5 % (47.0-73.0); PLATELET COUNT AUTOMATED 236 10*3/uL (130-400); RED BLOOD COUNT 3.82 10*6/uL (4.10-5.10); RED CELL DISTRI WIDTH 14.7 % (0-14.5)
[2018-12-15 15:18] LABS: ACT PARTIAL THROMBO TIME 25.1 SECONDS (20.0-32.1); INTERNATIONAL NORM RATIO 0.9 (2.0-3.5)
[2018-12-15 15:22] LABS: ALBUMIN 3.5 gm/dl (3.1-4.5); ALKALINE PHOSPHATASE 110 U/L (45-117); BUN 10 mg/dl (7-24); CHLORIDE 110 mmol/L (98-107); CREATININE 0.67 mg/dL (0.55-1.02); POTASSIUM 3.4 mmol/L (3.5-5.1); SGOT/AST 56 IU/L (3-35); SGPT/ALT 49 U/L (12-78); SODIUM 147 mmol/L (136-145); TOTAL PROTEIN 6.9 gm/dL (6.4-8.2)
[2018-12-15 15:30] LABS: THYROID STIM HORMONE (HS) 0.799 uIU/ml (0.358-4.75)
--- NOTE | 2018-12-15 15:32 | NUR ---
ETOH [address] DR MAN NOTIFIED
--- NOTE | 2018-12-15 15:54 | NUR ---
PT SITTING UP IN BED EATING A BOX LUNCH, IV FLUIDS INFUSING PER ORDER, PT IS PLEASENTY AND COOPERTIVE AT THIS TIME. CALL LIGHT IN REACH WILL MONITOR.
--- NOTE | 2018-12-15 18:30 | NUR ---
PT RESTING WITH HER EYES CLOSED NO DISTRESS NOTED, WILL MONITOR.
--- NOTE | 2018-12-15 19:25 | NUR ---
PT CONTINUES SLEEPING, AWAKENS WITH CARE. WILL CONTINUE TO MONITOR.
--- NOTE | 2018-12-15 21:40 | NUR ---
pt is awake and orinetedx3, pt is unsteady and shaky. dr huber notified. iv ativan ordered.
[2018-12-15 21:44] LABS: BILIRUBIN NEGATIVE (NEGATIVE); BLOOD NEGATIVE (NEGATIVE); CLARITY SL CLOUDY (CLEAR); COLOR YELLOW (YELLOW); GLUCOSE NEGATIVE (NEGATIVE); KETONE NEGATIVE (NEGATIVE); LEUKO ESTERASE NEGATIVE (NEGATIVE); NITRITE NEGATIVE (NEGATIVE); UROBILINOGEN 0.2 E.U./dl (0.2-1.0)
[2018-12-15 21:48] LABS: BACTERIA 2+; RBC 0-2 rbc/hpf (0-2); WBC 0-2 wbc/hpf (0-5)
[2018-12-15 21:52] LABS: URINE AMPHETAMINES < 1000 (1000ng/ml); URINE BARBITURATES > 200 (200ng/ml); URINE BENZODIAZEPINES > 200 (200ng/ml); URINE CANNABINOIDS (THC) < 50 (50ng/ml); URINE COCAINE < 300 (300ng/ml); URINE METHADONE < 300 (300ng/ml); URINE OPIATES < 300 (300ng/ml); URINE PHENCYCLIDINE < 25 (25ng/ml)
--- NOTE | 2018-12-15 23:00 | NUR ---
A 58, admitted to ICCU, under the services of JASWINDER Lopez DO with a diagnosis of DELIRIUM TREMENS, BARBITURATE W/D, ALCOHOL W/D, BENZODIAZEPENE W/D. Chief complaint is MULTIPLE COMPLAINTS. Patient arrived via ambulatory from ER. Monitor applied. Initial assessment completed. Vital signs taken and recorded. JASWINDER LOPEZ DO notified of admission to the unit. Orders received. See assessment for past medical history, medications and allergies. Patient and/or family oriented to unit. [facility] ICCU visitation policy reviewed. Clothing/patient valuable form completed. DORYS RIDER
--- NOTE | 2018-12-15 23:40 | NUR ---
PATIENT TAKEN DOWN TO CT BY QUYEN VAUGHN. ASSESSMENT COMPLETED. NO S/S OF DISTRESS. PATIENT SLUGGISH, SLOW TO RESPOND, HYPERTENSIVE. ELEVATED BP CALLED TO DR REDD. STATES HE WILL PLACE ORDERS. MED REC CANNOT BE COMPLETED AT THIS TIME DUE TO PATIENT'S MENTAL STATE. CALL LIGHT PLACED WITHIN REACH. WITHIN SIGHT OF NURSING STATION.
[2018-12-16] VITALS (8 sets, daily range): BP systolic 123–172; BP diastolic 77–97
--- NOTE | 2018-12-16 00:16 | NUR ---
MVI OBTAINED FROM KATY WARREN, ARCGIS DEVELOPER. MIXED BY Fatimah RIDER RN.
--- NOTE | 2018-12-16 04:23 | NUR ---
PATIENT RESTING COMFORTABLY IN HER BED. NO S/S OF DISTRESS. NO OBVIOUS WITHDRAWAL SIGNS OR SYMPTOMS NOTED. SEIZURE PADS ADDED TO BED. TEDS APPLIED. CALL LIGHT PLACED WITHIN REACH. WITHIN SIGHT OF NURSE.
--- NOTE | 2018-12-16 07:37 | NUR ---
PT REPORTED PAIN OF 8/10, ADMINISTERED TYLENOL, ROBAXIN, AND VISTARIL FOR ANXIETY PER MD ORDER
[2018-12-16 10:02] LABS: BASO % 0.3 % (0.0-1.0); EOS # 0.2 10*3/uL (0.0-0.4); EOS % 2.4 % (1.0-4.0); HEMATOCRIT 37.8 % (37.0-47.0); HEMOGLOBIN 12.3 g/dl (12.0-16.0); LYMPH # 1.4 10*3/uL (1.3-4.4); LYMPH % 22.5 % (27.0-41.0); MEAN CELL VOLUME 97.9 fl (81.0-99.0); MEAN CORPUSCULAR HGB 31.9 pg (27.0-31.0); MEAN CORPUSCULAR HGB CONC 32.5 g/dl (33.0-37.0); MEAN PLATELET VOLUME 9.6 fl (9.6-12.3); MONO # 0.7 10*3/uL (0.1-1.0); MONO % 10.4 % (3.0-9.0); NEUT % 64.2 % (47.0-73.0); PLATELET COUNT AUTOMATED 209 10*3/uL (130-400); RED BLOOD COUNT 3.86 10*6/uL (4.10-5.10); RED CELL DISTRI WIDTH 14.5 % (0-14.5); WHITE BLOOD COUNT 6.2 10*3/uL (4.8-10.8)
--- NOTE | 2018-12-16 10:17 | NUR ---
PT STATED SHE WAS ANXIOUS/HAVING TREMORS, REQUESTED PRN ATIVAN. 2MG GIVEN IV
[2018-12-16 10:26] LABS: ALBUMIN 3.3 gm/dl (3.1-4.5); ALKALINE PHOSPHATASE 105 U/L (45-117); BUN 9 mg/dl (7-24); CHLORIDE 108 mmol/L (98-107); CREATININE 0.77 mg/dL (0.55-1.02); LIPASE 221 U/L (73-393); POTASSIUM 3.5 mmol/L (3.5-5.1); SGOT/AST 43 IU/L (3-35); SGPT/ALT 39 U/L (12-78); SODIUM 141 mmol/L (136-145); TOTAL PROTEIN 6.2 gm/dL (6.4-8.2)
--- NOTE | 2018-12-16 11:00 | NUR ---
PT RESTING QUIETLY IN BED SINCE RECEIVING IV ATIVAN FOR DT'S.
--- NOTE | 2018-12-16 16:13 | NUR ---
PT GIVEN IV ATIVAN FOR TREMORS AT PT REQUEST.
--- NOTE | 2018-12-16 19:45 | NUR ---
PT. RESTING IN BED, ANXIOUS AT PRESENT, ASKING FOR NEXT MEDICATION. VISTARIL, ROBAXIN AND BENTYL GIVEN ORDERED FOR ANXIETY, STOMACH ACHES AND CRAMPING. HEP LOCK IN RH ASYMPT. LUNGS CLEAR BUT DIMINISHED BILAT, PLSE OX 96% ON RA. ABDOMEN SOFT, NONDISTENDED AND NORMO. NO PERIPHERAL EDEMA NOTED. KNEE HIGH MELIZA HOSE ON BILAT. PT. A&O X3 AT PRESENT. YOAV JARAMILLO RN
--- NOTE | 2018-12-16 21:10 | NUR ---
PT. LOST DESYREL IN THE BED AFTER DUMPING CUP IN TO HAND. AFTER PILL WAS FOUND, PT. STATED SHE DIDN'T WANT TO TAKE IT GIVES HER A "HANGOVER".
--- NOTE | 2018-12-16 21:12 | NUR ---
PT. STATED VISTARIL, ROBAXIN AND BENTYL WERE "ALITTLE EFFECTIVE" PT. REMAINS ANXIOUS. ASK IF WE COULD WASH HER CLOTHES. I EXPLAINED WE DIDNT HAVE FACILITIES TO DO THIS BUT WOULD PROVIDE A HOSPITAL GOWN IF SHE WOULD LIKE, PT. REFUSED. YOAV JARAMILLO RN
--- NOTE | 2018-12-16 21:21 | NUR ---
PT. NEEDED TO USE THE BATHROOM. EXPLAINED NEED TO VOID IN THE BEDSIDE COMMODE IN PATIENTS ROOM. PT. STATED THAT SHE HAS BEEN GOING TO THE BATHROOM ALL DAY. GAIT UNSTEADY AT TIMES. EXPLAINED TO PATIENT THAT THE MONITOR DOES NOT REACH INTO THE RESTROOM AND THE BSC WOULD BE MORE CONVENIENT FOR HER. PT. USING BSC AT PRESENT. YOAV JARAMILLO RN
--- NOTE | 2018-12-16 22:01 | NUR ---
PT. GIVEN ATIVAN AT 2200 ORDERED PER PT. REQUEST. PT. STATES SHE IS GETTING MIXED UP AND THINKS SHE IS AT HER AUNTS SOMETHIMES. FINE TREMBLES NOTED. BED ALARM ON. YOAV JARAMILLO RN
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
--- NOTE | 2018-12-16 23:00 | NUR ---
ATIVAN MILDLY EFFECTIVE FOR ANXIETY. PT UP IN ROOM x2, SETTING OFF BED ALARM.
--- NOTE | 2018-12-16 23:46 | NUR ---
PT. VERY CONFUSED. STATING SHE NEEDS TO GO FIND HER PURSE. UNHOOKING HERSELF FROM MONITOR AND RUNNING AROUND ICU. EXPLAINED THE NEED TO WEAR MONITOR. PT. ASSISTED BACK TO BED, BED EXIT REMAINS ON. YOAV JARAMILLO RN
--- NOTE | 2018-12-16 23:52 | NUR ---
PT. ASKING FOR PHENOBARB REPEATEDLY, ASKING IF IT IS DUE. EXPLAINED TO PATIENT LIBIUM WILL BE GIVE AT 0600 PER ORDERS. YOAV JARAMILLO RN
[2018-12-17] VITALS: BP 140/86
--- NOTE | 2018-12-17 03:11 | NUR ---
PT. SET UP DUE TO PATIENTS REQUEST TO GET WASHED UP. REFUSING HOSPITAL GOWN, STATED SHE WOULD PUT CLOTHES BACK ON. YOAV JARAMILLO RN
[2018-12-17 04:00] VITALS: BP 173/96
--- NOTE | 2018-12-17 05:07 | NUR ---
LIBRIUM, VISTARIL, ROBAXIN AND BENTYL GIVEN ORDERED FOR DT'S, ANXIETY AND MUSCLE ACHES AND PAINS. YOAV JARAMILLO RN
--- NOTE | 2018-12-17 05:47 | NUR ---
PT. APPEARS MORE ALERT AND ORIENTED THIS AM. STATES SHE FEELS SHAKEY BUT DOES NOT FEEL CONFUSED CURRENTLY. WILL CONTINUE TO MONITOR. YOAV JARAMILLO RN
--- NOTE | 2018-12-17 06:17 | NUR ---
PT.VERY ANXIOUS AT TIMES, VISTARIL INEFFECTIVE. TREMORS MINIMAL, LIBRIUM EFFECTIVE AND PT. STATES ROBAXIN AND BENTYL EFFECTIVE FOR STOMACH ACHES AND CRAMPS. YOAV JARAMILLO RN
[2018-12-17 06:23] LABS: BASO % 0.7 % (0.0-1.0); EOS # 0.3 10*3/uL (0.0-0.4); EOS % 6.2 % (1.0-4.0); HEMATOCRIT 38.5 % (37.0-47.0); HEMOGLOBIN 12.8 g/dl (12.0-16.0); LYMPH # 1.3 10*3/uL (1.3-4.4); LYMPH % 29.9 % (27.0-41.0); MEAN CELL VOLUME 95.8 fl (81.0-99.0); MEAN CORPUSCULAR HGB 31.8 pg (27.0-31.0); MEAN CORPUSCULAR HGB CONC 33.2 g/dl (33.0-37.0); MEAN PLATELET VOLUME 10.1 fl (9.6-12.3); MONO # 0.6 10*3/uL (0.1-1.0); MONO % 14.3 % (3.0-9.0); NEUT % 48.4 % (47.0-73.0); PLATELET COUNT AUTOMATED 202 10*3/uL (130-400); RED BLOOD COUNT 4.02 10*6/uL (4.10-5.10); RED CELL DISTRI WIDTH 13.8 % (0-14.5); WHITE BLOOD COUNT 4.2 10*3/uL (4.8-10.8)
[2018-12-17 06:59] LABS: ALBUMIN 3.5 gm/dl (3.1-4.5); ALKALINE PHOSPHATASE 121 U/L (45-117); BUN 10 mg/dl (7-24); CHLORIDE 107 mmol/L (98-107); CREATININE 0.65 mg/dL (0.55-1.02); PHOSPHOROUS 3.5 mg/dL (2.5-4.9); SGOT/AST 31 IU/L (3-35); SGPT/ALT 36 U/L (12-78); SODIUM 140 mmol/L (136-145); TOTAL PROTEIN 6.7 gm/dL (6.4-8.2)
[2018-12-17 08:00] VITALS: BP 168/88
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
--- NOTE | 2018-12-17 09:07 | NUR ---
PT IS CRYING STATING SHE JUST WANTS TO GO HOME. AWAITING HER DAUGHTERS ARRIVAL.
--- NOTE | 2018-12-17 10:40 | NUR ---
PT ALERT AND ORIENTED AT THIS TIME. PT'S DAUGHTER KIRIT HERE AND WILLING TO TAKE PT HOME SINCE PT IS STILL INSISTING THAT SHE WANTS TO GO HOME TODAY. DR DUKE NOTIFIED AND WILL BE UP TO SPEAK WITH PT AND HER DAUGHTER.
[2018-12-17] MEDS ORDERED: ATARAX,VISTARIL50 MG PO (10:47)
--- NOTE | 2018-12-17 10:54 | NUR ---
PT DISCHARGED AT THIS TIME WITH DAUGHTER TO HOME.
--- NOTE | 2018-12-17 10:54 | NUR ---
Discharge instructions reviewed with patient/family. Patient receptive and verbalizes understanding. Follow-up care arranged. Written instructions given to patient/family. MIHAELA ANTOINE
== END 2018-12-17 10:54 | disposition home or self-care (01) | DRG 897 ==
LOC: ED 14:17 → EDHOLD 22:22 → ICCU 22:22
PROVIDERS: Emergency Medicine; Internal Medicine; ADMIT Family Medicine
DX: F10.129 Alcohol abuse with intoxication, unspecified (principal); E44.0 Moderate protein-calorie malnutrition; E87.0 Hyperosmolality and hypernatremia; F33.9 Major depressive disorder, recurrent, unspecified; F13.10 Sedative, hypnotic or anxiolytic abuse, uncomplicated; E87.6 Hypokalemia; R74.0 Nonspecific elevation of levels of transaminase and lactic acid dehydrogenase [LDH]; I10 Essential (primary) hypertension; M79.2 Neuralgia and neuritis, unspecified; F10.182 Alcohol abuse with alcohol-induced sleep disorder; F41.9 Anxiety disorder, unspecified; F17.210 Nicotine dependence, cigarettes, uncomplicated; S92.514A Nondisplaced fracture of proximal phalanx of right lesser toe(s), initial encounter for closed fracture; W18.30XA Fall on same level, unspecified, initial encounter; Y93.89 Activity, other specified; Y92.89 Other specified places as the place of occurrence of the external cause; Y99.8 Other external cause status; Z71.6 Tobacco abuse counseling; Z90.710 Acquired absence of both cervix and uterus; Z82.49 Family history of ischemic heart disease and other diseases of the circulatory system; Z84.89 Family history of other specified conditions; Z79.899 Other long term (current) drug therapy; Z68.21 Body mass index [BMI] 21.0-21.9, adult

== ENCOUNTER 2019-02-22 18:46 | Inpatient (IN) | payer OTHER ==
[~2019-02-22] VITALS: Ht 160 cm; Wt 52.7 kg
[~2019-02-22 18:46] MED LIST changes: +ATARAX,VISTARIL50 MG PO
[2019-02-22 18:47] VITALS: BP 129/79
[2019-02-22 20:02] LABS: BASO % 0.6 % (0.0-1.0); EOS # 0.1 10*3/uL (0.0-0.4); EOS % 1.5 % (1.0-4.0); HEMATOCRIT 42.7 % (37.0-47.0); HEMOGLOBIN 14.5 g/dl (12.0-16.0); LYMPH # 2.9 10*3/uL (1.3-4.4); MEAN CELL VOLUME 91.2 fl (81.0-99.0); MEAN PLATELET VOLUME 10.2 fl (9.6-12.3); MONO # 0.4 10*3/uL (0.1-1.0); MONO % 5.9 % (3.0-9.0); NEUT # 3.2 10*3/uL (2.3-7.9); PLATELET COUNT AUTOMATED 236 10*3/uL (130-400); RED BLOOD COUNT 4.68 10*6/uL (4.10-5.10); RED CELL DISTRI WIDTH 13.8 % (0-14.5); WHITE BLOOD COUNT 6.7 10*3/uL (4.8-10.8)
[2019-02-22 20:04] LABS: BILIRUBIN NEGATIVE (NEGATIVE); BLOOD NEGATIVE (NEGATIVE); CLARITY CLEAR (CLEAR); COLOR YELLOW (YELLOW); GLUCOSE NEGATIVE (NEGATIVE); KETONE NEGATIVE (NEGATIVE); LEUKO ESTERASE NEGATIVE (NEGATIVE); NITRITE NEGATIVE (NEGATIVE); SPECIFIC GRAVITY 1.015 (1.005-1.030); UROBILINOGEN 0.2 E.U./dl (0.2-1.0)
[2019-02-22 20:19] LABS: URINE AMPHETAMINES < 1000 (1000ng/ml); URINE BARBITURATES < 200 (200ng/ml); URINE BENZODIAZEPINES < 200 (200ng/ml); URINE CANNABINOIDS (THC) < 50 (50ng/ml); URINE COCAINE < 300 (300ng/ml); URINE METHADONE < 300 (300ng/ml); URINE OPIATES < 300 (300ng/ml)
--- NOTE | 2019-02-22 20:19 | NUR ---
PATIENT PROVIDED WITH A BOXED LUNCH.
[2019-02-22 20:20] LABS: ALBUMIN 4.1 gm/dl (3.1-4.5); ALKALINE PHOSPHATASE 135 U/L (45-117); BUN 18 mg/dl (7-24); CHLORIDE 107 mmol/L (98-107); CREATININE 0.74 mg/dL (0.55-1.02); SGOT/AST 46 IU/L (3-35); SGPT/ALT 51 U/L (12-78); SODIUM 141 mmol/L (136-145); TOTAL PROTEIN 7.7 gm/dL (6.4-8.2)
[2019-02-22 20:23] LABS: URINE PHENCYCLIDINE < 25 (25ng/ml)
[2019-02-22 20:29] LABS: ACETAMINOPHEN (TYLENOL) < 5.0 ug/ml (10-30)
--- NOTE | 2019-02-22 20:29 | NUR ---
CRITICAL LAB ALCOHOL 371. NOTIFIED.
[2019-02-22 22:50] LABS: INTERNATIONAL NORM RATIO 0.9 (2.0-3.5)
[2019-02-23 05:55] LABS: ALBUMIN 3.6 gm/dl (3.1-4.5); ALKALINE PHOSPHATASE 101 U/L (45-117); BUN 16 mg/dl (7-24); CHLORIDE 109 mmol/L (98-107); CREATININE 0.69 mg/dL (0.55-1.02); PHOSPHOROUS 2.2 mg/dL (2.5-4.9); POTASSIUM 3.4 mmol/L (3.5-5.1); SGOT/AST 38 IU/L (3-35); SGPT/ALT 43 U/L (12-78); SODIUM 143 mmol/L (136-145); TOTAL PROTEIN 6.6 gm/dL (6.4-8.2)
[2019-02-23 06:15] VITALS: BP 108/67
[2019-02-23 06:15] LABS: BASO % 0.4 % (0.0-1.0); EOS # 0.2 10*3/uL (0.0-0.4); EOS % 3.3 % (1.0-4.0); HEMATOCRIT 37.7 % (37.0-47.0); HEMOGLOBIN 12.4 g/dl (12.0-16.0); LYMPH # 2.2 10*3/uL (1.3-4.4); LYMPH % 49.1 % (27.0-41.0); MEAN CELL VOLUME 91.7 fl (81.0-99.0); MEAN CORPUSCULAR HGB 30.2 pg (27.0-31.0); MEAN CORPUSCULAR HGB CONC 32.9 g/dl (33.0-37.0); MEAN PLATELET VOLUME 10.8 fl (9.6-12.3); MONO # 0.5 10*3/uL (0.1-1.0); MONO % 10.6 % (3.0-9.0); NEUT # 1.7 10*3/uL (2.3-7.9); NEUT % 36.6 % (47.0-73.0); PLATELET COUNT AUTOMATED 199 10*3/uL (130-400); RED BLOOD COUNT 4.11 10*6/uL (4.10-5.10); RED CELL DISTRI WIDTH 13.7 % (0-14.5); WHITE BLOOD COUNT 4.5 10*3/uL (4.8-10.8)
--- NOTE | 2019-02-23 07:14 | NUR ---
REPORT FROM MIKE NAPIER AT THIS TIME.
--- NOTE | 2019-02-23 07:54 | NUR ---
[facility] BED ASSIGNED.
--- NOTE | 2019-02-23 08:20 | NUR ---
PATIENT TAKEN TO ICCU AT THIS TIME BEDSIDE GIVEN TO IBETH NAPIER NO CHANGE IN MENTAL STATUS.
[2019-02-23 08:22] VITALS: BP 164/98
--- NOTE | 2019-02-23 08:22 | NUR ---
A 58, admitted to ICCU, under the services of GABBY Lawrence DO with a diagnosis of ACUTE ALCOHOL INTOXICATION AND ETOH ABUSE. Chief complaint is "IM AN ALCOHOLIC AND I NEED HELP". Patient arrived via stretcher from ER. Monitor applied. Initial assessment completed. Vital signs taken and recorded. GABBY LAWRENCE DO notified of admission to the unit. Orders received. See assessment for past medical history, medications and allergies. Patient and/or family oriented to unit. [facility] ICCU visitation policy reviewed. Clothing/patient valuable form completed. IBETH REAL
[2019-02-23] MEDS ORDERED: NEURONTIN300 MG PO (09:06)
[2019-02-23] MEDS ORDERED: PROTONIX40 MG PO (09:06)
[2019-02-23 12:00] VITALS: BP 161/96
[2019-02-23 16:00] VITALS: BP 149/105
[2019-02-23 20:00] VITALS: BP 133/86
--- NOTE | 2019-02-23 22:12 | NUR ---
AT 2119 PT REQUESTED IV ATIVAN FOR HER VISIBLE TREMORS AND RESTLESSNESS. THIS WAS EFFECTIVE SHE IS LAYING ON HER RT SIDE, BODY RELAXED.
[2019-02-24] VITALS: BP 146/88
[2019-02-24 04:00] VITALS: BP 147/101
--- NOTE | 2019-02-24 05:45 | NUR ---
PT REQUESTED IV ATIVAN FOR "SHAKING AND NERVES" AT 0540. EFFECTIVE. PT DOZING WITH RELAXED BODY.
[2019-02-24 08:00] VITALS: BP 155/95
[2019-02-24 08:46] LABS: BASO % 0.2 % (0.0-1.0); EOS # 0.3 10*3/uL (0.0-0.4); EOS % 4.4 % (1.0-4.0); HEMATOCRIT 42.1 % (37.0-47.0); HEMOGLOBIN 13.8 g/dl (12.0-16.0); LYMPH # 1.7 10*3/uL (1.3-4.4); LYMPH % 28.2 % (27.0-41.0); MEAN CELL VOLUME 93.1 fl (81.0-99.0); MEAN CORPUSCULAR HGB 30.5 pg (27.0-31.0); MEAN CORPUSCULAR HGB CONC 32.8 g/dl (33.0-37.0); MEAN PLATELET VOLUME 10.7 fl (9.6-12.3); MONO # 0.7 10*3/uL (0.1-1.0); NEUT # 3.3 10*3/uL (2.3-7.9); NEUT % 54.9 % (47.0-73.0); PLATELET COUNT AUTOMATED 158 10*3/uL (130-400); RED BLOOD COUNT 4.52 10*6/uL (4.10-5.10); RED CELL DISTRI WIDTH 13.5 % (0-14.5); WHITE BLOOD COUNT 5.9 10*3/uL (4.8-10.8)
--- NOTE | 2019-02-24 08:49 | NUR ---
DR KNAPP IN TO SEE PT EARLIER. NEW ORDERS RECEIVED.
[2019-02-24 08:58] LABS: BUN 17 mg/dl (7-24); CHLORIDE 105 mmol/L (98-107); POTASSIUM 3.5 mmol/L (3.5-5.1); SODIUM 141 mmol/L (136-145)
--- NOTE | 2019-02-24 10:16 | NUR ---
PT SLEEPING. NO ACUTE DISTRESS NOTED AT THIS TIME.
[2019-02-24 12:00] VITALS: BP 139/97
--- NOTE | 2019-02-24 12:47 | NUR ---
PT REFUSED AN LOVENOX,MULTIVITAMIN AND FOLIC ACID.
[2019-02-24 16:00] VITALS: BP 142/95
--- NOTE | 2019-02-24 17:00 | NUR ---
PT STATING SHE WANTS TO SIGN OUT AMA WHEN HER DAUGHTER COMES TO GET HER. PT CALLED HER DAUGHTER AND HER DAUGHTER STATED SHE WILL BE HERE AFTER HER ROAST IS FINISHED...AROUND 7PM. WILL NOTIFY DOCTOR.
--- NOTE | 2019-02-24 18:25 | NUR ---
DR ROBISON NOTIFIED OF PT'S POTENTIAL AMA LATER TONIGHT.
--- NOTE | 2019-02-24 19:29 | NUR ---
IV HEPLOCK REMOVED, PT DRESSED AND REQUESTING WHEELCHAIR TO FRONT LOBBY WHERE PT'S DAUGHTER HAS CALLED FLOOR AND STATED SHE IS WAITING. ALL BELONGINGS WITH PT. PT. SIGNED AMA PAPERS AND WAS GIVEN REASONS TO STAY AND REHAB. PT. REFUSED. LEFT AMA AT THIS TIME. YOAV JARAMILLO RN
== END 2019-02-24 19:29 | disposition left against medical advice (07) | DRG 894 ==
LOC: ED 18:46 → EDHOLD 21:41 → ICCU 02-23 07:53
PROVIDERS: Emergency Medicine Emergency Medical Services; Internal Medicine; Student in an Organized Health Care Education/Training Program; ADMIT Emergency Medicine
DX: F10.129 Alcohol abuse with intoxication, unspecified (principal); R19.7 Diarrhea, unspecified; I10 Essential (primary) hypertension; E87.6 Hypokalemia; E83.39 Other disorders of phosphorus metabolism; G47.00 Insomnia, unspecified; Z53.21 Procedure and treatment not carried out due to patient leaving prior to being seen by health care provider; M79.2 Neuralgia and neuritis, unspecified; F32.9 Major depressive disorder, single episode, unspecified; F41.9 Anxiety disorder, unspecified; R74.0 Nonspecific elevation of levels of transaminase and lactic acid dehydrogenase [LDH]; F17.210 Nicotine dependence, cigarettes, uncomplicated; Z71.6 Tobacco abuse counseling; Z91.81 History of falling; Z90.710 Acquired absence of both cervix and uterus; Z82.49 Family history of ischemic heart disease and other diseases of the circulatory system; Z84.89 Family history of other specified conditions; Z79.899 Other long term (current) drug therapy

== ENCOUNTER 2019-12-26 08:44 | Inpatient (IN) | payer OTHER ==
[~2019-12-26] VITALS: Ht 160 cm; Wt 58.0 kg
[~2019-12-26 08:44] MED LIST changes: +NEURONTIN300 MG PO; +PROTONIX40 MG PO
[2019-12-26 08:50] VITALS: BP 166/111
[2019-12-26 09:35] LABS: BASO % 0.9 % (0.0-1.0); EOS # 0.2 10*3/uL (0.0-0.4); EOS % 4.5 % (1.0-4.0); HEMATOCRIT 42.4 % (37.0-47.0); LYMPH # 2.2 10*3/uL (1.3-4.4); LYMPH % 48.3 % (27.0-41.0); MEAN CELL VOLUME 89.6 fl (81.0-99.0); MEAN CORPUSCULAR HGB 29.2 pg (27.0-31.0); MEAN CORPUSCULAR HGB CONC 32.5 g/dl (33.0-37.0); MEAN PLATELET VOLUME 9.2 fl (9.6-12.3); MONO # 0.5 10*3/uL (0.1-1.0); MONO % 11.2 % (3.0-9.0); NEUT # 1.6 10*3/uL (2.3-7.9); NEUT % 34.9 % (47.0-73.0); PLATELET COUNT AUTOMATED 263 10*3/uL (130-400); RED BLOOD COUNT 4.73 10*6/uL (4.10-5.10); RED CELL DISTRI WIDTH 14.9 % (0-14.5); WHITE BLOOD COUNT 4.5 10*3/uL (4.8-10.8)
[2019-12-26 09:51] LABS: ALBUMIN 3.8 gm/dl (3.1-4.5); ALKALINE PHOSPHATASE 149 U/L (45-117); BUN 8 mg/dl (7-24); CHLORIDE 106 mmol/L (98-107); CREATININE 0.97 mg/dL (0.55-1.02); POTASSIUM 3.7 mmol/L (3.5-5.1); SGOT/AST 54 IU/L (3-35); SGPT/ALT 53 U/L (12-78); SODIUM 140 mmol/L (136-145); TOTAL PROTEIN 7.9 gm/dL (6.4-8.2)
[2019-12-26 09:52] LABS: TROPONIN I < 0.015 ng/ml (<0.045)
[2019-12-26 09:54] LABS: ACETAMINOPHEN (TYLENOL) < 5.0 ug/ml (10-30)
[2019-12-26 10:44] LABS: URINE AMPHETAMINES < 1000 (1000ng/ml); URINE BARBITURATES < 200 (200ng/ml); URINE BENZODIAZEPINES > 200 (200ng/ml); URINE CANNABINOIDS (THC) < 50 (50ng/ml); URINE COCAINE < 300 (300ng/ml); URINE METHADONE < 300 (300ng/ml); URINE OPIATES < 300 (300ng/ml)
[2019-12-26 10:46] LABS: URINE PHENCYCLIDINE < 25 (25ng/ml)
[2019-12-26 14:25] VITALS: BP 148/96
[2019-12-26] MEDS ORDERED: NORVASC5 MG PO (15:37)
[2019-12-26] MEDS ORDERED: ZOFRAN 4 MG ED2 TAB PO (15:55)
[2019-12-26] MEDS ORDERED: VISTARIL25 M2 PO (15:56)
[2019-12-26 16:00] VITALS: BP 176/104
[2019-12-26 17:08] VITALS: BP 144/95
[2019-12-26 19:59] VITALS: BP 168/98
[2019-12-26 21:50] VITALS: BP 168/103
[2019-12-27] VITALS (7 sets, daily range): BP systolic 111–167; BP diastolic 79–104
[2019-12-27 05:50] LABS: ALBUMIN 3.3 gm/dl (3.1-4.5); ALKALINE PHOSPHATASE 133 U/L (45-117); BUN 9 mg/dl (7-24); CHLORIDE 104 mmol/L (98-107); CHOLESTEROL 246 mg/dL (<200); CREATININE 0.92 mg/dL (0.55-1.02); FREE T4 0.81 ng/dl (0.76-1.46); HDL CHOLESTEROL 73 mg/dl (40-60); LDL CHOLESTEROL 132 mg/dL (9-159); POTASSIUM 3.8 mmol/L (3.5-5.1); SGOT/AST 50 IU/L (3-35); SGPT/ALT 42 U/L (12-78); SODIUM 136 mmol/L (136-145); TOTAL PROTEIN 6.9 gm/dL (6.4-8.2); TRIGLYCERIDES 203 mg/dl (<150); VLDL CHOLESTEROL 41 mg/dL (6-40)
[2019-12-27 06:28] LABS: ACT PARTIAL THROMBO TIME 27.8 SECONDS (20.0-32.1); INTERNATIONAL NORM RATIO 0.9 (2.0-3.5)
[2019-12-27 06:36] LABS: BASO % 0.3 % (0.0-1.0); EOS # 0.1 10*3/uL (0.0-0.4); HEMATOCRIT 41.4 % (37.0-47.0); LYMPH # 1.3 10*3/uL (1.3-4.4); LYMPH % 22.3 % (27.0-41.0); MEAN CORPUSCULAR HGB 29.5 pg (27.0-31.0); MEAN CORPUSCULAR HGB CONC 32.4 g/dl (33.0-37.0); MONO # 1.1 10*3/uL (0.1-1.0); MONO % 17.8 % (3.0-9.0); NEUT # 3.4 10*3/uL (2.3-7.9); NEUT % 57.3 % (47.0-73.0); PLATELET COUNT AUTOMATED 225 10*3/uL (130-400); RED BLOOD COUNT 4.55 10*6/uL (4.10-5.10); RED CELL DISTRI WIDTH 14.8 % (0-14.5)
[2019-12-27 07:30] LABS: VITAMIN D, 25-HYDROXY 20.5 ng/mL (30-100)
[2019-12-28] VITALS: BP 94/53
[2019-12-28 06:06] LABS: HEMATOCRIT 40.8 % (37.0-47.0); MEAN CELL VOLUME 90.5 fl (81.0-99.0); MEAN CORPUSCULAR HGB CONC 32.1 g/dl (33.0-37.0); MEAN PLATELET VOLUME 10.1 fl (9.6-12.3); PLATELET COUNT AUTOMATED 213 10*3/uL (130-400); RED BLOOD COUNT 4.51 10*6/uL (4.10-5.10); RED CELL DISTRI WIDTH 14.6 % (0-14.5); WHITE BLOOD COUNT 4.6 10*3/uL (4.8-10.8)
[2019-12-28 06:26] LABS: ALBUMIN 3.4 gm/dl (3.1-4.5); ALKALINE PHOSPHATASE 139 U/L (45-117); BUN 13 mg/dl (7-24); CHLORIDE 108 mmol/L (98-107); CREATININE 1.03 mg/dL (0.55-1.02); POTASSIUM 3.5 mmol/L (3.5-5.1); SGOT/AST 32 IU/L (3-35); SGPT/ALT 36 U/L (12-78); SODIUM 138 mmol/L (136-145); TOTAL PROTEIN 7.1 gm/dL (6.4-8.2)
[2019-12-28 07:28] LABS: BASOPHILS 1 % (0-1); PLATELET SUFFICIENCY NORMAL (NORMAL); TOTAL CELLS COUNTED 100 #CELLS
[2019-12-28 08:00] VITALS: BP 118/88; BP 119/71
[2019-12-28] MEDS ORDERED: PHARMASSURE V500 MCG PO (10:17)
[2019-12-28] MEDS ORDERED: VITAMIN D350 MC2 PO (10:17)
[2019-12-28] MEDS ORDERED: ATORVASTATIN CA20 M1 PO (10:17)
[2019-12-28] MEDS ORDERED: CHLORDIAZEPOXID25 MG PO (10:19)
== END 2019-12-28 10:51 | disposition home or self-care (01) | DRG 775 ==
LOC: ED 08:44 → ICCU 09:29 → EDHOLD 09:29 → ICCU 14:14 → 5E 12-27 14:26
PROVIDERS: Hospitalist; Internal Medicine; Physician Assistant; ADMIT Student in an Organized Health Care Education/Training Program
DX: F10.239 Alcohol dependence with withdrawal, unspecified (principal); R00.0 Tachycardia, unspecified; R74.0 Nonspecific elevation of levels of transaminase and lactic acid dehydrogenase [LDH]; R74.8 Abnormal levels of other serum enzymes; E83.51 Hypocalcemia; G47.00 Insomnia, unspecified; M79.2 Neuralgia and neuritis, unspecified; F32.9 Major depressive disorder, single episode, unspecified; F41.9 Anxiety disorder, unspecified; K44.9 Diaphragmatic hernia without obstruction or gangrene; K22.6 Gastro-esophageal laceration-hemorrhage syndrome; F17.210 Nicotine dependence, cigarettes, uncomplicated; E44.0 Moderate protein-calorie malnutrition; F13.10 Sedative, hypnotic or anxiolytic abuse, uncomplicated; E83.41 Hypermagnesemia; Z90.710 Acquired absence of both cervix and uterus; Z82.49 Family history of ischemic heart disease and other diseases of the circulatory system; Z68.23 Body mass index [BMI] 23.0-23.9, adult

== ENCOUNTER 2021-12-24 14:18 | Inpatient (IN) | payer OTHER ==
[~2021-12-24] VITALS: Ht 160 cm; Wt 56.8 kg
[~2021-12-24 14:18] MED LIST changes: +ATORVASTATIN CA20 M1 PO; +CHLORDIAZEPOXID25 MG PO; +NORVASC5 MG PO; +PHARMASSURE V500 MCG PO; +VITAMIN D350 MC2 PO; +ZOFRAN 4 MG ED2 TAB PO
[2021-12-24 14:38] VITALS: BP 140/87
[2021-12-24 16:03] LABS: BASO # 0.1 10*3/uL (0.0-0.1); BASO % 0.9 % (0.0-1.0); EOS # 0.2 10*3/uL (0.0-0.4); EOS % 2.7 % (1.0-4.0); HEMATOCRIT 36.5 % (37.0-47.0); LYMPH # 2.3 10*3/uL (1.3-4.4); LYMPH % 34.7 % (27.0-41.0); MEAN CELL VOLUME 68.5 fl (81.0-99.0); MEAN CORPUSCULAR HGB 19.9 pg (27.0-31.0); MEAN PLATELET VOLUME 9.3 fl (9.6-12.3); MONO # 0.4 10*3/uL (0.1-1.0); MONO % 5.5 % (3.0-9.0); NEUT # 3.8 10*3/uL (2.3-7.9); NEUT % 55.9 % (47.0-73.0); PLATELET COUNT AUTOMATED 406 10*3/uL (130-400); RED BLOOD COUNT 5.33 10*6/uL (4.10-5.10); RED CELL DISTRI WIDTH 21.6 % (0-14.5); WHITE BLOOD COUNT 6.8 10*3/uL (4.8-10.8)
[2021-12-24 16:18] LABS: ACT PARTIAL THROMBO TIME 25.1 SECONDS (20.0-32.1); INTERNATIONAL NORM RATIO 0.9 (2.0-3.5)
[2021-12-24 16:20] LABS: ALKALINE PHOSPHATASE 99 U/L (45-117); BUN 11 mg/dl (7-24); CHLORIDE 110 mmol/L (98-107); CREATININE 0.75 mg/dL (0.55-1.02); SGOT/AST 22 IU/L (3-35); SGPT/ALT 27 U/L (12-78); SODIUM 141 mmol/L (136-145); TOTAL PROTEIN 7.7 gm/dL (6.4-8.2)
[2021-12-24 19:16] VITALS: BP 130/76
[2021-12-24 20:44] VITALS: BP 136/80
[2021-12-24 23:31] VITALS: BP 126/90
[2021-12-24 23:34] LABS: BILIRUBIN Negative (Negative); BLOOD Negative (Negative); CLARITY Cloudy (Clear); COLOR Yellow (Yellow); GLUCOSE Negative (Negative); KETONE Negative (Negative); LEUKO ESTERASE Negative (Negative); NITRITE Negative (Negative); PH 5.5 (4.5-8.0); UROBILINOGEN 0.2 E.U./dl (0.0-1.0)
[2021-12-24 23:40] LABS: RBC 0-2 rbc/hpf (0-2)
[2021-12-24 23:41] LABS: BACTERIA 1+; MUCOUS 1+
[2021-12-24 23:44] LABS: URINE AMPHETAMINES < 1000 (1000ng/ml); URINE BARBITURATES > 200 (200ng/ml); URINE BENZODIAZEPINES < 200 (200ng/ml); URINE CANNABINOIDS (THC) > 50 (50ng/ml); URINE COCAINE < 300 (300ng/ml); URINE METHADONE < 300 (300ng/ml); URINE OPIATES < 300 (300ng/ml); URINE PHENCYCLIDINE < 25 (25ng/ml)
[2021-12-25 01:49] VITALS: BP 117/84
[2021-12-25 04:27] VITALS: BP 120/84
[2021-12-25 05:46] LABS: BUN 14 mg/dl (7-24); CHLORIDE 108 mmol/L (98-107); CREATININE 0.78 mg/dL (0.55-1.02); POTASSIUM 3.7 mmol/L (3.5-5.1); SGOT/AST 21 IU/L (3-35); SGPT/ALT 23 U/L (12-78); SODIUM 140 mmol/L (136-145)
[2021-12-25 05:54] LABS: ALKALINE PHOSPHATASE 92 U/L (45-117); CHOLESTEROL 243 mg/dL (<200); FREE T4 0.69 ng/dl (0.76-1.46); LDL CHOLESTEROL 104 mg/dL (9-159); TOTAL PROTEIN 6.9 gm/dL (6.4-8.2); TRIGLYCERIDES 284 mg/dl (<150)
[2021-12-25 06:09] LABS: BASO % 0.4 % (0.0-1.0); EOS # 0.2 10*3/uL (0.0-0.4); EOS % 2.9 % (1.0-4.0); HEMATOCRIT 31.7 % (37.0-47.0); LYMPH # 2.4 10*3/uL (1.3-4.4); LYMPH % 31.2 % (27.0-41.0); MEAN CELL VOLUME 69.1 fl (81.0-99.0); MEAN CORPUSCULAR HGB 20.3 pg (27.0-31.0); MEAN CORPUSCULAR HGB CONC 29.3 g/dl (33.0-37.0); MONO # 0.9 10*3/uL (0.1-1.0); MONO % 11.7 % (3.0-9.0); NEUT % 53.7 % (47.0-73.0); PLATELET COUNT AUTOMATED 341 10*3/uL (130-400); RED BLOOD COUNT 4.59 10*6/uL (4.10-5.10); RED CELL DISTRI WIDTH 20.9 % (0-14.5); WHITE BLOOD COUNT 7.5 10*3/uL (4.8-10.8)
[2021-12-25 07:00] VITALS: BP 134/74
[2021-12-25 09:17] LABS: VITAMIN D, 25-HYDROXY 13.7 ng/mL (30-100)
[2021-12-25 12:00] VITALS: BP 142/86; BP 156/99
[2021-12-25 20:00] VITALS: BP 131/89
[2021-12-26] VITALS: BP 125/83
[2021-12-26 08:00] VITALS: BP 123/80
[2021-12-26 12:00] VITALS: BP 131/88
[2021-12-26 16:00] VITALS: BP 135/86; BP 139/70
[2021-12-26 20:00] VITALS: BP 138/82
[2021-12-26] MEDS ORDERED: AMLODIPINE BESY10 MG PO (21:05)
[2021-12-27] VITALS: BP 117/81
[2021-12-27 08:00] VITALS: BP 122/75
== END 2021-12-27 12:14 | disposition home or self-care (01) | DRG 775 ==
LOC: ED 14:18 → EDHOLD 16:04 → 4E 16:04 → EDHOLD 16:54 → 4E 12-25 07:20
PROVIDERS: Emergency Medicine; Internal Medicine; ADMIT Internal Medicine; ATTEND Internal Medicine
DX: F10.229 Alcohol dependence with intoxication, unspecified (principal); F41.9 Anxiety disorder, unspecified; E83.41 Hypermagnesemia; F10.239 Alcohol dependence with withdrawal, unspecified; D50.9 Iron deficiency anemia, unspecified; D75.839 Thrombocytosis, unspecified; I10 Essential (primary) hypertension; F32.A Depression, unspecified; F17.210 Nicotine dependence, cigarettes, uncomplicated; K44.9 Diaphragmatic hernia without obstruction or gangrene; R00.0 Tachycardia, unspecified; E78.5 Hyperlipidemia, unspecified; F13.10 Sedative, hypnotic or anxiolytic abuse, uncomplicated; R82.71 Bacteriuria; Z79.899 Other long term (current) drug therapy; Z90.710 Acquired absence of both cervix and uterus; Z90.89 Acquired absence of other organs; Z82.49 Family history of ischemic heart disease and other diseases of the circulatory system

== ENCOUNTER 2022-05-16 13:45 | Inpatient (IN) | payer OTHER ==
[~2022-05-16] VITALS: Ht 160 cm; Wt 59.2 kg
[~2022-05-16 13:45] MED LIST changes: +AMLODIPINE BESY10 MG PO; +BUSPAR15 MG PO; +HYDROXYZINE PAM25 M1 PO; +LYVISPAH10 MG PO; +MIRTAZAPINE15 M2 PO; +NATURE'S BLEND F1 MG PO; +OMEPRAZOLE MAGN20 MG PO; +THERA TABLET400 MCG PO; +VITAMIN B-1100 M1 PO
[2022-05-16 13:56] VITALS: BP 164/96
[2022-05-16 15:09] LABS: BASO # 0.1 10*3/uL (0.0-0.1); EOS # 0.4 10*3/uL (0.0-0.4); EOS % 7.9 % (1.0-4.0); HEMATOCRIT 42.7 % (37.0-47.0); LYMPH # 2.5 10*3/uL (1.3-4.4); LYMPH % 47.7 % (27.0-41.0); MEAN PLATELET VOLUME 9.6 fl (9.6-12.3); MONO # 0.3 10*3/uL (0.1-1.0); MONO % 6.2 % (3.0-9.0); NEUT # 1.9 10*3/uL (2.3-7.9); PLATELET COUNT AUTOMATED 359 10*3/uL (130-400); RED BLOOD COUNT 5.34 10*6/uL (4.10-5.10); RED CELL DISTRI WIDTH 25.6 % (0-14.5); WHITE BLOOD COUNT 5.2 10*3/uL (4.8-10.8)
[2022-05-16 15:19] LABS: ACT PARTIAL THROMBO TIME 26.7 SECONDS (20.0-32.1); INTERNATIONAL NORM RATIO 0.9 (2.0-3.5)
[2022-05-16 15:24] LABS: ALKALINE PHOSPHATASE 96 U/L (46-116); BUN 9 mg/dl (9-23); CHLORIDE 106 mmol/L (98-107); CREATININE 0.74 mg/dL (0.55-1.02); LIPASE 84 U/L (12-53); POTASSIUM 4.1 mmol/L (3.4-5.1); SGPT/ALT 23 U/L (10-49); SODIUM 142 mmol/L (136-145)
[2022-05-16 15:25] LABS: TOTAL PROTEIN 7.5 gm/dL (6.0-8.0)
[2022-05-16 15:37] LABS: ETHYL ALCOHOL 351.5 mg/dl (<3)
[2022-05-16 16:32] VITALS: BP 124/76
[2022-05-16 17:53] VITALS: BP 134/73
[2022-05-16] MEDS ORDERED: VISTARIL25 MG PO (18:03)
[2022-05-16] MEDS ORDERED: PANTOPRAZOLE SO40 MG PO (18:04)
[2022-05-16] MEDS ORDERED: FERROUS SULFAT324 M2 PO (18:05)
[2022-05-16 20:00] VITALS: BP 136/71
[2022-05-16 23:28] LABS: BILIRUBIN Negative (Negative); BLOOD Negative (Negative); CLARITY Clear (Clear); COLOR Yellow (Yellow); GLUCOSE Negative (Negative); KETONE Negative (Negative); LEUKO ESTERASE Negative (Negative); NITRITE Negative (Negative); PH 5.5 (4.5-8.0); UROBILINOGEN 0.2 E.U./dl (0.0-1.0)
[2022-05-16 23:36] LABS: URINE AMPHETAMINES Negative (1000ng/ml); URINE BARBITURATES Positive (200ng/ml); URINE BENZODIAZEPINES Negative (200ng/ml); URINE CANNABINOIDS (THC) Positive (50ng/ml); URINE COCAINE Negative (300ng/ml); URINE METHADONE Negative (300ng/ml); URINE OPIATES Negative (300ng/ml); URINE PHENCYCLIDINE Negative (25ng/ml)
[2022-05-16 23:38] LABS: BACTERIA 1+; EPITHELIAL CELLS 16-20
[2022-05-17] VITALS: BP 150/60
[2022-05-17 08:00] VITALS: BP 132/68
[2022-05-17 12:00] VITALS: BP 131/76
[2022-05-17 15:19] VITALS: BP 137/88
[2022-05-17 20:00] VITALS: BP 148/86
[2022-05-18] VITALS: BP 128/70; BP 95/55
[2022-05-18 05:18] LABS: BUN 10 mg/dl (9-23); CHLORIDE 107 mmol/L (98-107); CREATININE 0.74 mg/dL (0.55-1.02); SODIUM 142 mmol/L (136-145)
[2022-05-18 06:41] LABS: BASO % 0.4 % (0.0-1.0); EOS # 0.4 10*3/uL (0.0-0.4); EOS % 8.6 % (1.0-4.0); HEMATOCRIT 34.2 % (37.0-47.0); LYMPH # 1.5 10*3/uL (1.3-4.4); LYMPH % 31.8 % (27.0-41.0); MEAN CELL VOLUME 82.2 fl (81.0-99.0); MEAN CORPUSCULAR HGB 25.2 pg (27.0-31.0); MEAN CORPUSCULAR HGB CONC 30.7 g/dl (33.0-37.0); MEAN PLATELET VOLUME 10.6 fl (9.6-12.3); MONO # 0.7 10*3/uL (0.1-1.0); MONO % 13.9 % (3.0-9.0); NEUT # 2.1 10*3/uL (2.3-7.9); NEUT % 45.1 % (47.0-73.0); RED BLOOD COUNT 4.16 10*6/uL (4.10-5.10); RED CELL DISTRI WIDTH 25.2 % (0-14.5); WHITE BLOOD COUNT 4.7 10*3/uL (4.8-10.8)
[2022-05-18 06:45] LABS: PLATELET COUNT AUTOMATED 244 10*3/uL (130-400)
[2022-05-18 08:00] VITALS: BP 142/82
[2022-05-18 11:40] VITALS: BP 126/83
[2022-05-18 16:00] VITALS: BP 125/74
[2022-05-18 20:00] VITALS: BP 136/80
[2022-05-19] VITALS: BP 114/65
[2022-05-19 08:00] VITALS: BP 144/90
[2022-05-19] MEDS ORDERED: LYVISPAH10 M1 PO (09:41)
== END 2022-05-19 10:52 | disposition home or self-care (01) | DRG 775 ==
LOC: ED 13:45 → EDHOLD 16:33 → 5E 16:33
PROVIDERS: Family Medicine; ADMIT Emergency Medicine; ATTEND Emergency Medicine
DX: F10.229 Alcohol dependence with intoxication, unspecified (principal); F10.239 Alcohol dependence with withdrawal, unspecified; I10 Essential (primary) hypertension; E87.20 Acidosis, unspecified; F41.9 Anxiety disorder, unspecified; F32.A Depression, unspecified; K21.9 Gastro-esophageal reflux disease without esophagitis; G47.00 Insomnia, unspecified; F17.210 Nicotine dependence, cigarettes, uncomplicated; Z90.710 Acquired absence of both cervix and uterus; Z82.49 Family history of ischemic heart disease and other diseases of the circulatory system; Z71.6 Tobacco abuse counseling; R00.0 Tachycardia, unspecified